=== PATIENT | male | born 2000 | race Caucasian/White ===

== ENCOUNTER 2020-03-24 20:12 | Emergency (ER) | payer OTHER, SELFPAY ==
--- NOTE | ~2020-03-24 | XR_ITS ---
EXAMINATION: XR shoulder RT min 2V DATE: 03/24/2020 21:04 INDICATION: Right shoulder pain. TECHNIQUE: 4 views of right shoulder were obtained. COMPARISON: None. FINDINGS: Bone alignment is normal. No fracture. Joint spaces are well maintained. IMPRESSION: 1. Normal right shoulder. Reviewed, dictated and finalized at location A. IMPRESSION: 1. Normal right shoulder.
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
[2020-03-24 20:17] VITALS: BP 183/87; PULSE 100; RESP 20; TEMP 36.5; O2SAT 100
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
[2020-03-24 21:40] VITALS: BP 147/77; PULSE 60; RESP 20; O2SAT 98
== END 2020-03-24 21:41 | disposition home or self-care (01) ==
PROVIDERS: Emergency Provider Emergency Medicine; PCP Internal Medicine
DX: S20.221A Contusion of right back wall of thorax, initial encounter (principal); V86.55XA Driver of 3- or 4- wheeled all-terrain vehicle (ATV) injured in nontraffic accident, initial encounter
CPT/HCPCS: 71046; 71100; 73030; 99284

== ENCOUNTER 2020-12-31 05:56 | Emergency (ER) | payer OTHER, SELFPAY ==
--- NOTE | ~2020-12-31 | XR_ITS ---
EXAMINATION: XR finger 2nd LT min 2V DATE: 12/31/2020 06:22 INDICATION: Left hand second digit laceration. TECHNIQUE: 4 views of left hand second digit were obtained. COMPARISON: None. FINDINGS: Bone alignment is normal. No fracture. Joint spaces are well maintained. IMPRESSION: 1. No fracture or radiopaque foreign body. Reviewed, dictated and finalized at location A. IONEER TOBACCO
[2020-12-31 06:00] VITALS: BP 129/81; PULSE 109; RESP 12; TEMP 37.2; O2SAT 100
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
[2020-12-31 06:54] VITALS: BP 121/78; PULSE 76; RESP 16; TEMP 36.8; O2SAT 100
== END 2020-12-31 06:55 | disposition home or self-care (01) ==
PROVIDERS: Emergency Provider Emergency Medicine; PCP Internal Medicine
DX: S61.211A Laceration without foreign body of left index finger without damage to nail, initial encounter (principal); F17.220 Nicotine dependence, chewing tobacco, uncomplicated; W26.0XXA Contact with knife, initial encounter
CPT/HCPCS: 29130; 73140; 99283

== ENCOUNTER 2021-07-29 19:15 | Emergency (ER) | payer OTHER, SELFPAY ==
--- NOTE | ~2021-07-29 | XR_ITS ---
XR finger 2nd RT min 2V 07/29/2021 19:39 INDICATION: Right second finger pain after trauma PROCEDURE: 4 views right second finger COMPARISON: No prior studies for comparison. FINDINGS: Fracture, dislocation or subluxation is not identified. The soft tissues appear within norm al limits. No foreign bodies are identified. IMPRESSION: 1: NO ACUTE BONE OR JOINT ABNORMALITY IDENTIFIED. Reviewed, dictated and finalized at location A.
[2021-07-29 19:27] VITALS: BP 139/83; PULSE 73; RESP 16; TEMP 36.9; O2SAT 100
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
== END 2021-07-29 20:38 | disposition home or self-care (01) ==
PROVIDERS: Emergency Provider Nurse Practitioner; PCP Internal Medicine
DX: S60.121A Contusion of right index finger with damage to nail, initial encounter (principal); W22.8XXA Striking against or struck by other objects, initial encounter
CPT/HCPCS: 11740; 73140; 99213; G0463

== ENCOUNTER 2022-08-31 23:26 | Emergency (ER) | payer OTHER, SELFPAY ==
[2022-08-31 23:42] VITALS: BP 150/88; PULSE 88; RESP 16; TEMP 36.6; O2SAT 100
--- NOTE | 2022-09-01 00:22 | ECG_ITS ---
Measurements Intervals [place] Rate: 57 P: 50 [place]: 147 QRS: 72 QRSD: 96 T: 55 QT: 417 QTc: 407 Interpretive Statements SINUS BRADYCARDIA POSSIBLE RIGHT VENTRICULAR CONDUCTION DELAY [RSR (QR) IN V1/V2] NO PREVIOUS ECG AVAILABLE FOR COMPARISON Electronically Signed On 09-01-2022 13:14:46 CDT by Kristi Dior M.D.
--- NOTE | 2022-09-01 00:23 | ED.RECABL ---
HPI - Recheck/Abnormal Lab/Rx General Chief Complaint: Recheck/Abnormal Lab/Rx <Elaina Michele PA-C - Last Filed: 09/01/22 01:52> Stated Complaint: high blood pressure 166/84 <ELIZA Trejo Last Filed: 09/01/22 01:52> Time Seen by Provider: 09/01/22 00:15 <ELIZA Trejo Last Filed: 09/01/22 01:52> History of Present Illness HPI narrative: Patient is a 22-year-old male here for evaluation of feeling weird after he worked out earlier today. Patient states that he has not had much to eat or drink at all today, did drink some preworkout before going to the gym. During his workout, he began to feel dizzy, weak, He left the gym, went home and took his blood pressure and noticed that it was in the 160s systolic. He does not have a personal history of hypertension. No fevers, chills, nausea, vomiting, chest pain, short of breath. <ELIZA Trejo Last Filed: 09/01/22 01:52> Related Data Home Medications: Home Medications Medication Instructions Recorded Confirmed No Home Medications 03/24/20 07/29/21 <ELIZA Trejo Last Filed: 09/01/22 01:52> Allergies/Adverse Reactions: Allergies Allergy/AdvReac Type Severity Reaction Status Date / Time AMOXICILLIN TRIHYDRATE Allergy Mild RASH Uncoded 07/29/21 20:09 <ELIZA Trejo Last Filed: 09/01/22 01:52> Review of Systems Review of Systems: Gen.: Reports dizziness. Denies fevers or chills Eyes: Denies eye pain or visual change ENT: Denies congestion Respiratory: Denies shortness of breath or cough CV: Denies chest pain or palpitations GI: Denies abdominal pain nausea, emesis or diarrhea denies burning, urgency, frequency or hematuria Musculoskeletal: Denies back pain or muscle pain Neuro: Denies numbness, tingling, weakness or focal weakness Skin: Denies rash Except as documented, all other systems reviewed and negative <Elaina Michele PA-C - Last Filed: 09/01/22 01:52> [facility] Past Medical History Medical History: Medical History No significant past medical history <Elaina Michele PA-C - Last Filed: 09/01/22 01:52> Surgical History Surgical History: Surgical History Status post arthroscopic surgery of left knee <Elaina Michele PA-C - Last Filed: 09/01/22 01:52> Social History Social History: Social History Smokeless tobacco user: chewing tobacco Gender identity (if verbalized by the patient): Male <Elaina Michele PA-C - Last Filed: 09/01/22 01:52> Exam Narrative: APPEARANCE: Well appearing, no pain in distress, well-nourished. Head: Normocephalic and atraumatic. EYES: PERRLA/EOMI, conjunctivae clear NOSE: No nasal drainage EARS: External ear normal in appearance THROAT: Oropharynx is clear. Mucous membranes are moist. NECK: Supple. No adenopathy, no masses. RESPIRATORY: Airway patent, respirations nonlabored. Clear to auscultation bilaterally, no rales, rhonchi, wheezing. CARDIOVASCULAR: Regular rate and rhythm without murmurs, rubs, or gallops. ABDOMINAL: Normoactive bowel sounds. Soft, nontender, nondistended. No rebound tenderness or guarding. MUSCULOSKELETAL: Extremities are warm and well-perfused. Moves all extremities well. No edema. NEURO: Normal speech. No focal neurologic deficits. SKIN: Skin is warm and dry. No rashes. PSYCHIATRIC: Normal affect/mood.. <Elaina Michele PA-C - Last Filed: 09/01/22 01:52> Course FACILITY DESIGNER/PA Physician Supervision I discussed this patient with JOHN Michele. I agree with the assessment and plan as documented. <Trenton Bermudez MD - Last Filed: 09/02/22 12:32> Vital Signs Vital signs: Vital Signs Temperature 97.9 F 08/31/22 23:42 Pulse Rate
[2022-09-01 00:49] VITALS: BP 126/75; BP 130/68; PULSE 60; PULSE 72
[2022-09-01 00:50] VITALS: BP 134/81; PULSE 81
[2022-09-01] MEDS: MECLIZINE HCL 25 MG TABLET PO (01:04)
[2022-09-01] MEDS: SODIUM CHLORIDE 0.9% IV 1,000 ML 999 ML IV CONT (01:04)
[2022-09-01 01:19] LABS: Basophils Absolute Auto 0.1 K/mm3 (0.0-0.1); Basophils Percent Auto 0.4 % (0.2-1.2); Eosinophils Absolute Auto 0.1 K/mm3 (0-0.3); Eosinophils Percent Auto 0.8 % (0-4.4); Hematocrit 44.9 % (42.0-52.0); Hemoglobin 15.8 g/dL (14.0-18.0); Immature Granulocyte Absolute 0.05 K/mm3 (0.00-0.031); Immature Granulocyte Percent A 0.4 % (0-0.5); Lymphocytes Absolute Auto 1.89 K/mm3 (0.9-3.2); Mean Corpuscular HGB Conc 35.2 g/dl (32-36); Mean Corpuscular Hemoglobin 30.9 pg (26-34); Mean Corpuscular Volume 87.7 fl (80-100); Mean Platelet Volume 8.5 fl (7.4-10.4); Monocytes Absolute Auto 0.8 K/mm3 (0.1-0.6); Monocytes Percent Auto 6.5 % (2.6-8.5); Neutrophils Percent Auto 75.9 % (45.5-73.1); Platelet Count Result 280 k/mm3 (150-375); Red Blood Count 5.12 M/mm3 (4.6-6.20); Red Cell Distribution Width 12.7 % (11.5-14.5); White Blood Count 11.8 K/mm3 (4.5-10.0)
[2022-09-01 01:29] LABS: Alanine Aminotransferase 125 U/L (6-50); Albumin Level 4.7 g/dL (3.5-5.1); Alkaline Phosphatase 71 U/L (38-126); Anion Gap 13 mmol/L (8-16); Aspartate Amino Transferase 166 U/L (17-59); Bilirubin,Total 0.6 mg/dL (0.2-1.3); Blood Urea Nitrogen 11 mg/dL (9-20); Calcium 9.3 mg/dL (8.4-10.2); Carbon Dioxide 24 mmol/L (22-30); Chloride 104 mmol/L (98-107); Estimated CRCL calculation 137 ml/min; Estimated Glomerular Filt Rate > 60; Glucose 105 mg/dL (65-110); Potassium 3.4 mmol/L (3.4-5.0); Sodium 141 mmol/L (137-145)
[2022-09-01 01:47] LABS: Troponin I < 0.012 ng/mL (0.000-0.034)
[2022-09-01 02:25] VITALS: BP 112/68; PULSE 60; RESP 16; O2SAT 98
== END 2022-09-01 02:58 | disposition home or self-care (01) ==
PROVIDERS: Physician Assistant; Emergency Provider Preventive Medicine Aerospace Medicine; PCP Internal Medicine
DX: E86.0 Dehydration (principal); R00.1 Bradycardia, unspecified
CPT/HCPCS: 36415; 80053; 84484; 85025; 93005; 96360; 99284; A9270; J7030

== ENCOUNTER 2025-02-19 21:42 | Emergency (ER) | payer OTHER, SELFPAY ==
--- NOTE | ~2025-02-19 | XR_ITS ---
CHEST RADIOGRAPH CLINICAL HISTORY: palpitations . COMPARISON: 03/24/2020 TECHNIQUE: Single portable view of the chest. FINDINGS The cardiomediastinal silhouette is unremarkable. A monitor projects over the left mid to upper lung field, obscuring the underlying parenchyma. The remainder of the lungs are clear. IMPRESSION: No focal infiltrate or effusion. Reviewed, dictated and finalized at location A.
--- OUTSIDE RECORDS SUMMARY | 2025-02-19 21:44 | XMS_ITS | Clinical Summary ---
Author Organization [facility] Address [address] [place]: Epic Prelude ADT TAMMIE MCADAMS [id number] Care Team Providers Care Public Relations Supervisor Name Role Phone Unavailable Primary Care Provider Unavailabl e Medications azithromycin (Zithromax Z-Perry) 250 mg tablet TAKE 2 TABLETS (500 MG) BY ORAL ROUTE ONCE DAILY FOR 1 DAY THEN 1 TABLET (250 MG) BY ORAL ROUTE ONCE DAILY FOR 4 DAYS 6 Tablet 12/28/2022 12:56 PM LAND COMMISSIONER 12/28/2022 Active benzonatate (TESSALON) 200 mg capsule Take 1 Capsule (200 mg) by mouth 3 times daily. 21 Capsule 12/02/2023 2:08 PM LAND COMMISSIONER 12/02/2023 Active methylPREDNISol one (MEDROL DOSPACK) 4 mg Tablets, Dose Pack Take as directed on package 21 Tablet 02/29/2024 4:09 PM CDT 02/29/2024 Active azithromycin (Zithromax Z-Perry) 250 mg tablet Take 2 tablets by mouth daily for 1 day, then take 1 tablet by mouth days 2-5 6 Tablet 02/29/2024 4:09 PM CDT 02/29/2024 Active benzonatate (TESSALON) 200 mg capsule Take 1 Capsule (200 mg) by mouth 3 times daily. 21 Capsule 01/23/2025 5:06 PM LAND COMMISSIONER 01/23/2025 Active azithromycin (Zithromax Z-Perry) 250 mg tablet TAKE 2 TABLETS BY MOUTH A SINGLE DOSE ON DAY 1, THEN TAKE 1 TABLET ONCE DAILY ON DAYS 2 THRU 5. 6 Tablet 01/23/2025 5:06 PM LAND COMMISSIONER 01/23/2025 Active Social History Tobacco Use Types Packs/Day Years Used Date Smoking Tobacco: Never Assessed Sex and Gender Information Value Date Recorded Sex Assigned at Not on file Legal Sex Male 3:27 PM CDT Gender Identity Not on file Sexual Orientation Not on file Plan of Treatment Health Maintenance Due Date Last Done Comments HPV VACCINES (1 - Male 3-dos e series) 2014 DTAP/TDAP/TD VACCINES (1 - Tdap) 2018 HEPATITIS B VACCINES (1 of 3 - 19+ 3-dose series) 2018 INFLUENZA VACCINE (#1) 2024 PNEUMOCOCCAL VACCINE 0-49 YEARS Aged Out No longer eligible based on patient's age to complete this topic Insurance [employer]
--- OUTSIDE RECORDS SUMMARY | 2025-02-19 21:44 | XMS_ITS | Clinical Summary ---
Author Organization [facility] Address [address] [place] [address] Care Team Providers Care Art Glass Setter Name Role Phone Nigel Hernandez MD Primary Care Provider [phone] Source Comments [facility],non-owned Affiliates and Associated Physician Practices is amultiple site organization consisting of ambulatory clinics and hospital sitesin [place], [place], [place] and [place]. This disclosure is being madepursuant to the Care Everywhere program and may not contain all information available regarding this patient. Last updated 18.[facility] Allergies Active Allergy Reactions Criticality Noted Date Comments Amoxicillin Rash Low 08/01/2015 Medications Be aware that medications may not be up to date on this document. Always verify current medications with the patient. No known medications Active Problems Problem Noted Date Diagnosed Date Scaphoid fracture of wrist 09/26/2015 Fracture of navicular bone of left wrist 015 Social History Tobacco Use Types Packs/Day Years Used Date Smoking Tobacco: Never Alcohol Use Standard Drinks/Week Comments Not Asked 0 (1 standard drink = 0.6 oz pur e alcohol) Sex and Gender Information Value Date Recorded Sex Assigned at Not on file Gender Identity Not on file Sexual Orientation Not on file Last Filed Vital Signs Vital Sign Reading Time Taken Comments Blood Pressure - - Pulse - - Temperature - - Respiratory Rate - - Oxygen Saturation - - Inhaled Oxygen Concentration - - Weight 94.4 kg (208 lb 0.6 oz) 09/26/2015 8:54 A M FIELD INSPECTOR Height 178.9 cm (5' 10.43 ) 09/26/2015 8:[address] Body Mass Index 29.48 09/26/2015 8:54 AM FIELD INSPECTOR Plan of Treatment Health Maintenance Due Date Last Done Comments HIV SCREENING 2014 HPV VACCINE (1 - Male 3-dose series) 2014 HEPATITIS C SCREENING 08/11/2017 DTAP/TDAP/TD VACCINES (1 - Tdap) 2018 HEPATITIS B VACCINE (1 of 3 - 19+ 3-dose series) 2018 COVID-19 VACCINE (1 - 2023-2 5 season) 2024 INFLUENZA VACCINE (#1) 2024 DEPRESSION SCREENING 11/22/2024 ZOSTER VACCINE (1 of 2) 2049 HIB VACCINE Aged Out No longer eligi ble based on patient's age to complete this topic MENINGOCOCCAL (Group B) VACC INE SHARED DECISION-MAKING Aged Out No longer eligibl e based on patient's age to complete this topic MENINGOCOCCAL GROUPS A/C/Y/W VACCINE Aged Out No longer eligible b ased on patient's age to complete this topic PNEUMOCOCCAL VACCINE Aged Out No long er eligible based on patient's age to complete this topic Care Teams Art Glass Setter Relationship Specialty Start Date End Date Nigel Hernandez MD [address] [place] [id number] PCP - General Internal Medicine 07/31/15
--- OUTSIDE RECORDS SUMMARY | 2025-02-19 21:44 | XMS_ITS | Clinical Summary ---
Author Organization [facility] Address [address] [place] [id number] Care Team Providers Care Artillery Meteorological Man Name Role Phone Unavailable Primary Care Provider Unavailabl e Social History Tobacco Use Types Packs/Day Years Used Date Smoking Tobacco: Never Assessed Sex and Gender Information Value Date Recorded Sex Assigned at Not on file Legal Sex Male 2:14 PM DONOR CENTER TECHNICIAN Gender Identity Not on file Sexual Orientation Not on file Plan of Treatment Health Maintenance Due Date Last Done Comments Hepatitis C Virus (HCV) Screening 1999 TdaP Immunization 1999 Hepatitis B Immunization (2 of 3 - 3-dose series) 1999 1999 Influenza Immunization (#1) 2024 SARS-COV-2 Immunization ( season) 2024 Respiratory Syncytial Virus (RSV) Immunization (Adult) (1 - 1-dose 75+ series) 2074 Human Papillomavirus (HPV) Immunization Completed 06/26/2014, 06/23/2013 Meningococcal Immunization (ACWY) Aged Out No longer eligible b ased on patient's age to complete this topic Pneumococcal Immunization Combined Aged Out No longer eligible b ased on patient's age to complete this topic Rotavirus Immunization Aged Out No lo nger eligible based on patient's age to complete this topic
--- OUTSIDE RECORDS SUMMARY | 2025-02-19 21:44 | XMS_ITS | Clinical Summary ---
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 Phone Nigel Hernandez MD Primary Care Provider Allergies Active Allergy Reactions Criticality Noted Date Comments Amoxicillin Rash Medium 08/01/2015 Penicillins Rash Medium Medications No known medications Active Problems Problem Noted Date Diagnosed Date Current tear of lateral cartilage or meniscus of knee 01/30/2019 Overview (01/30/2019): Added automatically from request for surgery [id number] Knee pain 10/06/2013 Surgical History Surgery Date Site/Laterality Comments MYRINGOTOMY W/ TUBES 1999 - 11/21/2000 Bilateral Medical History Medical History Date Comments Asthma well controlled Cold Z-pack / cough m edicine started 02/01--now resolved Chews tobacco regularly Family History Medical History Relation Name Comments Hypertension Father Arthritis Mother Relation Name Status Comments Father Mother Social History Tobacco Use Types Packs/Day Years Used Date Smoking Tobacco: Never Smokeless Tobacco: Current Chew Alcohol Use Standard Drinks/Week Comments Not Currently 0 (1 standard drink = 0.6 oz pur e alcohol) Sex and Gender Information Value Date Recorded Sex Assigned at Not on file Legal Sex Male 9:43 AM [employer] Gender Identity Not on file Sexual Orientation Not on file Obstetrics History Last Filed Vital Signs Vital Sign Reading Time Taken Comments Blood Pressure 128/77 04/28/2024 6:42 PM CDT Pulse 92 04/28/2024 6:42 PM CDT Temperature 37.4 C (99.3 F) 04/28/2024 6:42 PM CDT Respiratory Rate 16 04/28/2024 6:42 PM CDT Oxygen Saturation 97% 04/28/2024 6:42 PM CDT Inhaled Oxygen Concentration - - Weight 95.6 kg (210 lb 12.8 oz) 04/28/2024 6:42 PM CDT Height 177.8 cm (5' 10 ) 04/28/2024 6:42 PM CDT Body Mass Index 30.25 04/28/2024 6:42 PM CDT Plan of Treatment Health Maintenance Due Date Last Done Comments Depression Screening 1999 Hepatitis C Screening 1999 Varicella Vaccines (2 of 2 - 2-dose childhood series) 2003 08/21/2000 Regular Well Visit/Exam 18-64 2017 Pneumococcal vaccine <65 (1 of 2 - PCV) 2018 DTaP/Tdap/Td Vaccine (7 - Td or Tdap) 05/27/2021 05/27/2011, 05/21/2005, 01/29/2001, Additional history exists Influenza Vaccine (#1) 2024 Hepatitis B Screening Completed 03/23/2000 , 01/13/2000, 01/13/2000, Additional history exists HPV Vaccines Completed 06/26/2014, 12/2012, 05/30/2012, Additional history exists Insurance [facility] CHO[facility] PLUS [facility] PL[facility] PLUS Care Teams [employer] Delivery [employer] Relationship Specialty Start Date End Date Nigel Hernandez MD PCP - General Internal Medicine 01/27/19
--- OUTSIDE RECORDS SUMMARY | 2025-02-19 21:44 | XMS_ITS | Data Portability ---
Author Organization [place] - [place] [employer], Main Office Address [address] [place] [address] Care Team Providers Care Cisco Administrator Name Role Phone LIZ NANCIE Primary Care Provider [phone] NANCIE HERNANDEZ Referring Provider Assessment No assessment recorded. Plan of Treatment Reminders Order Date Submit Date Provider Last Modified By Organization Details Last Modified Time Details Appointments None recorded. Lab lipid panel, serum 2023 024 [email or web address] [facility], [address] [place], [address], 4 17:03:03 CRP, high sensitivity , serum or plasma 2023 024 [email or web address] [facility], [address] [place], [address], 4 09:58:11 Referral None recorded. Procedures None recorded. Surgeries None recorded. Imaging None recorded. Medication Orders Zithromax Z-Perry 250 mg tablet 2024 025 [facility] [address], [place], [place], [id number], 5 17:25:20 benzonatate 200 mg capsule 2024 025 [facility], [address], [place], [place], [id number], 5 17:25:20 Bactrim DS 800 mg-160 mg tablet 2023 024 [email or web address] [facility] [address], [address] , [place], [place], [id number], 17:09:11 Patient TargetsNo targets recorded. Patient Instructions Encounter Date Encounter Id Patient Instructions Last Modified By Organization Details Last Modified Time 02/25/2024 [id number] risk assessment* [email or web address] Not availabl e 02/25/2024 17:01:47 INFLUENZA VACCIN E TD/TDAP Recommended today, patient declined Ordered P atient will get at local pharmacy/health department COLORECTAL SCREENING Recommended today, but patient declined Ordered C olonoscopy declined. Cologuard ordered No screening necessary until age 45 DEPRESSION SCREENING Negative BMI Overweight continue your current weight loss efforts try to lose 5% of your body weight try to lose 10% of your body weight NUTRITION Continue healthy eating & exercise PHYSICAL ACTIVITY Need more activity VISION ALCOHOL USE No alcohol use Occasional/Soc ial Use TOBACCO USE non smoker SEXUALLY ACTIVE GLUCOSE SCREENING Not needed LIPID SCREENING Not needed [email or web address] Not available 02/25/2024 16:33:44 Wellness evaluation risk assessment stable. No interval complaints of any major medical problems or symptoms. Instructed patient try some Zyrtec or Kristine along with possibly some Flonase and saline rinses of the nose. If no improvement will need can further evaluation. Will check a lipid panel because of family history grandfather has had cardiac disease. Other than that the patient is doing well. Follow-up in one year Next Appt: 1 Year Approximate Date: 02/24/2025 Portions of the record may have been created with voice recognition software. Occasional wrong-word or seotk-c-kaqx substitutions may have occurred due to the inherent limitations of voice recognition software. Read the chart carefully and recognize, using context, where substitutions have occurred. [email or web address] Not available 02/25/2024 17:01:05 04/20/2024 [id number] Epidermoid cyst of the neck will give a trial of some antibiotics in the form of Bactrim ds one b.i.d. For seven days. Instructed let us know if there is no improvement may need to consider further evaluation. Keep Appointment: [facility] 03 01 2025 04:00 PM Olimpia Portions of the record may have been created with voice recognition software. Occasional wrong-word or qnxdh-i-mucy substitutions may have occurred due to the inherent limitations of voice recognition software. Read the chart carefully and recognize, using context, where substitutions have occurred. [email or web address] Not available 04/20/2024 16:50:12 01/23/2025 [id number] Senna bronchitis will give a trial of Z-Perry some benzoate. If no improvement will need to consider further diagnostic evaluation. Keep Appointment: [facility] 03 01 2025 04:00 PM [place] Portions of record are template driven. When necessary additional context will be provided. Additionally some portions have been created with voice recognition software. Occasional wrong-word or mmpjf-v-nfkc substitutions may have occurred due to the inherent limitations of voice recognition software. Read the chart carefully and recognize, using context, where substitutions may have occurred. Created: Nancie Hernandez M.D. 01.23.2025 04:26 PM [email or web address] Not available 01/23/2025 17:26:14 Reason for Referral None Reported. Results Created Date Observation Date Name Description Value Unit Range Abnormal Flag Note LastModifiedBy Organization Detail LastModifiedTime 10/26/20 22 10/26/2022 COVID /FLU/ RSV PCR PANEL sars-cov-2 RNA(covid19) ,RT-PCR negati ve Not Available [facility] (Lab) [address] [place], [address], 10/26/2022 16:00:38 10/26/20 22 10/26/2022 COVID /FLU/ RSV PCR PANEL influenza A RNA, RT-PCR negati ve Not Available [facility] (Lab) [address] [place], [address], 10/26/2022 16:00:38 10/26/20 22 10/26/2022 COVID /FLU/ RSV PCR PANEL influenza B RNA, RT-PCR negati ve Not Available [facility] (Lab) [address] [place], [address], 10/26/2022 16:00:38 10/26/20 22 10/26/2022 COVID /FLU/ RSV PCR PANEL RSV/resp.syn ctial virus,RT-PCR negati ve Not Available [facility] ([facility]) [address], [place], [address], 10/26/2022 16:00:38 Result Notes None recorded. Problems Name Problem SNOMED Code Status Onset Date Resolution Date Notes Provider Name and Address Organization Details Recorded Time Constipation 21475265 Active 2021 Not Available [facility] 3 17:00:29 Acute sinusitis 18551945 Active 2021 Not Available [facility] 3 17:00:29 Asthma 359592414 Active Not Available [facility] 3 17:00:29 Current tear of medial cartilage AND/OR meniscus of knee Active Not Available [facility] 3 17:00:29 Current tear of lateral cartilage AND/OR meniscus of knee Active Not Available [facility] 3 17:00:29 Knee pain Active Not Available [facility] 3 17:00:29 Patellar tendonitis 17843755 Active Not Available [facility] 3 17:00:29 Hematoma 055125767 Active 2016 Not Available [facility] 3 17:00:29 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 Not Available [facility] 3 17:00:29 Acute bronchitis 65227040 Active 2023 Nancie Hernandez MD [address], [address], [place], [address] , [employer] 4 13:52:14 Allergic rhinitis 04294923 Active 2023 Nancie Hernandez MD [address], [address], [place], [address] , [facility] [employer] 4 16:56:22 Epidermoid cyst of skin of neck 745132303 Active 2023 Nancie Hernandez MD [address], [address], [place], [address] , [facility] [employer] 4 16:49:34 Tachycardia 0289813 Active 2024 Natalia Mcdowell CMA null, [place] [facility] 5 11:16:12 Problem Notes None recorded. Medical Equipment None Reported. Allergies Allergen ID Allergen Name Allergen Category Reaction Reaction Severity Criticality Documentation Date Start Date Code Code System Note Provider Name and Address Organization Details Recorded Time 76991 amoxicill in medicatio n rash Not available Not available 01/20/2023 723 RxNorm Not Available [facility] 3 17:01:53 Medications Name Sig Start Date Stop Date Status Note LastModified by Organization Details LastModified Time Singulair 10 mg tablet Take 1 tablet every day by oral route. 04/08 completed Not Available Not Available Not Available doxycycline hyclate 100 mg capsule 01/23 completed Not Available Not Available Not Available benzonatate 200 mg capsule Take 1 capsule 3 times a day by oral route. 2024 active Not Available Not Available Not Avai lable Zithromax Z-Perry 250 mg tablet Take 2 TABLET EVERY DAY by oral route for 1 day then one daily 2024 active Not Available Not Available Not Avai lable clindamycin HCl 150 mg capsule Take 1 capsule every 6 hours by oral route. 12/22 completed Not Available Not Available Not Available acetaminoph en 300 mg-codeine 30 mg tablet 10/17 completed Not Available Not Available Not Available Naprosyn 375 mg tablet Take 1 tablet twice a day by oral route. active Not Available Not Available No t Available tramadol 50 mg tablet 10/17 completed Not Available Not Available Not Available ondansetron 8 mg disintegrat ing tablet 10/17 completed Not Available Not Available Not Available neomycin-po lymyxin-dex ameth 3.5 mg/mL-10,00 0 unit/mL-0.1 % eye drops 08/04 completed Not Available Not Available Not Available Levaquin 500 mg tablet Take 1 tablet every 24 hours by oral route. 04/08 completed Not Available Not Available Not Available methylpredn isolone 4 mg tablets in a dose pack As Directed 04/20 completed Not Available Not Available Not Available Bactrim DS 800 mg-160 mg tablet Take 1 tablet every 12 hours by oral route. 01/23 completed Not Available Not Available Not Available Flonase Allergy Relief 50 mcg/actuati on nasal spray,suspe nsion 2 sprays each nostril daily 04/08 completed Not Available Not Available Not Available Vitals Date Recorded Body mass index (BMI) Body height Heart rate Respiratory rate Body temperature Body weight Systolic blood pressure Diastolic blood pressure Provider Name and Address Organization Details Last Updated DateTime 1 33.9 kg/m2 179.07 cm 76 /min 12 /min 97.5 [degF] 132722. 17 g 126 mm[Hg] 62 mm[Hg] Not Available [facility] 3 16:59:58 Date Recorded Oxygen saturation Oxygen saturation in Arterial blood by Pulse oximetry Heart rate Body temperature Body weight Systolic blood pressure Diastolic blood pressure Provider Name and Address Organization Details Last Updated DateTime 2 98 % 98 % 76 /min 97.6 [degF] 59416.7 3 g 134 mm[Hg] 80 mm[Hg] Not Available [facility] 3 16:59:58 Date Recorded Body height Body mass index (BMI) Body weight Heart rate Body temperature Oxygen saturation Oxygen saturation in Arterial blood by Pulse oximetry Systolic blood pressure Diastolic blood pressure Provider Name and Address Organization Details Last Updated DateTime 4 179.07 cm 31.5 kg/m2 206646. 1 g 73 /min 97 [degF] 97 % 97 % 120 mm[Hg] 68 mm[Hg] Keke Santiago [employer] 4 16:28:29 Date Recorded Body height Body mass index (BMI) Body weight Heart rate Body temperature Oxygen saturation Oxygen saturation in Arterial blood by Pulse oximetry Systolic blood pressure Diastolic blood pressure Provider Name and Address Organization Details Last Updated DateTime 4 179.07 cm 30.3 kg/m2 23654.7 7 g 80 /min 97.6 [degF] 98 % 98 % 118 mm[Hg] 72 mm[Hg] SEAN Rolle [employer] 4 16:40:23 Date Recorded Body height Body mass index (BMI) Body weight Heart rate Body temperature Oxygen saturation Oxygen saturation in Arterial blood by Pulse oximetry Systolic blood pressure Diastolic blood pressure Provider Name and Address Organization Details Last Updated DateTime 5 179.07 cm 31.7 kg/m2 875911. 69 g 79 /min 97 [degF] 97 % 97 % 120 mm[Hg] 78 mm[Hg] Keke Santiago [place] [facility] 17:09:01 Social History None recorded. Functional Status None recorded. Mental Status None recorded. Family History Nothing Reported Notes:Mother living 51 in go od health hip surgery Father living 51 in good health One sister living and in good health. Medical History Condition Response NERVE DISEASE N BLINDNESS N RHEUMATIC FEVER N KIDNEY STONES N BLADDER PROBLEMS N MRSA N OTHER # 1 N POLIO N LUNG DISEASE/DISORDER N RADIATION / CHEMOTHERAPY N COPD N Other # 2 N BLOOD DISEASES N SURGERY N EAR OR HEARING PROBLEMS N MUMPS N DEPRESSION (INCLUDING POST ) N BOWEL PROBLEMS N STROKE/TIA N ULCERS N BENIGN PROSTATIC HYPERPLASIA N MEASLES N MYOCARDIAL INFARCTION N OBESITY N GERD/NAUSEA N ANEURYSM N URINARY/BLADDER/KIDNEY PROBLEMS N CORONARY ARTERY DISEASE (CAD) N ADDICTION CONCERNS N Impotence N ENDOMETRIOSIS N USE OF BLOOD THINNERS N SKIN PROBLEMS N GASTROINTESTINAL DISORDER N PERIPHERAL VASCULAR DISEASE N MUSCLE,JOINT OR BONE PROBLEMS Y GASTROINTESTINAL BLEEDING N BLOOD CLOTS N ASTHMA Y CATARACTS N ERECTILE DYSFUNCTION N VARICOSITIES N GI PROBLEMS N Low Testosterone N INFERTILITY N AIDS/HIV N CHEMOTHERAPY / RADIATION N LIVER DISEASE N MALE HYPOGONADISM N HYPERTENSION N Deficiency N ANXIETY DISORDER N BLOOD TRANSFUSION N ANEMIA/BLOOD DISORDER N CHRONIC EAR INFECTIONS N BRONCHITIS N TUBERCULOSIS N GLAUCOMA N FOOT PROBLEM N DIVERTICULITIS N SLEEP APNEA N CHICKENPOX N INFECTIOUS DISEASE N PROSTATE N HEART ARRHYTHMIA N INSOMNIA N HIGH CHOLESTEROL / HYPERLIPIDEMIA N EYE PROBLEMS N HYPERTHYROIDISM N NEUROLOGICAL PROBLEMS N EDEMA N CHRONIC PAIN SYNDROME N HYPOTHYROIDISM N CAROTID BLOCKAGE N CONSTIPATION N BACK / NECK PROBLEMS N HAVE YOU BEEN HOSPITALIZED OR SEEN IN [facility] IN THE PAST YEAR ? N ATHEROSCLEROSIS N BREAST PROBLEMS N DIALYSIS N ECZEMA N OSTEOPOROSIS N ARTHRITIS N NO SIGNIFICANT PAST MEDICAL HISTORY N APPENDICITIS N DIABETES, TYPE N BAD TEETH N ENT N HEARTBURN / REFLUX N AUTISM SPECTRUM DISORDER (ASD) N HEPATITIS / LIVER DISEASE N GOUT N SLEEP DISORDER N ALZHEIMER'S DISEASE N Brain Problems N DEMENTIA N HERPES N SEIZURES/EPILEPSY N HEADACHES/MIGRAINES N VASCULAR DISEASE N PACEMAKER N Blood Disorder N DIZZINESS N HEART DISEASE/HEART PROBLEMS N KIDNEY DISEASE N MULTIPLE SCLEROSIS N CANCER: SPECIFY N CARDIAC ARRHYTHMIA N ATRIAL FIBRILLATION N Gall Stones N PULMONARY EMBOLISM N AUTOIMMUNE DISEASE N Immunizations Vaccine Type Date Status Note Provider [facility] e and Address Organization Details Recorded Time meningococcal MCV4P 7 completed Not Available [facility] 01/20/2023 17:01:47 Hib (HbOC) 0 completed Not Available [facility] 01/20/2023 17:01:47 OPV 9 completed Not Available [facility] 01/20/2023 17:01:47 DTaP 9 completed Not Available [facility] 01/20/2023 17:01:47 HPV, quadrivalent 3 completed Not Available [facility] 01/20/2023 17:01:47 meningococcal B, unspecified 1 completed Not Available [facility] 01/20/2023 17:01:48 DTaP 5 completed Not Available [facility] 01/20/2023 17:01:48 MMR 4 completed [facility] Available [facility] 01/20/2023 17:01:48 Hep A, ped/adol, 2 dose 2 completed [facility] Available [facility] 01/20/2023 17:01:48 IPV 1 completed Not Available [facility] 01/20/2023 17:01:48 Hep A, ped/adol, 2 dose 1 completed Not Available [facility] 01/20/2023 17:01:48 IPV 1 completed Not Available [facility] 01/20/2023 17:01:49 MMR 1 completed [facility] Available [facility] 01/20/2023 17:01:49 DTaP 0 completed Not Available [facility] 01/20/2023 17:01:49 IPV 0 completed Not Available [facility] 01/20/2023 17:01:49 Hep B, adolescent or pediatric 0 completed Not Available [facility] 01/20/2023 17:01:49 HPV, quadrivalent 2 completed Not Available [facility] 01/20/2023 17:01:49 HPV, quadrivalent 1 completed Not Available [facility] 01/20/2023 17:01:49 Tdap 1 completed Not Available [facility] 01/20/2023 17:01:49 DTaP 1 completed Not Available [facility] 01/20/2023 17:01:49 Hib, unspecified formulation 1 completed Not Available [facility] 01/20/2023 17:01:50 varicella 0 completed Not Available [facility] 01/20/2023 17:01:50 DTaP 0 completed Not Available [facility] 01/20/2023 17:01:50 Hep B, adolescent or pediatric 0 completed Not Available [facility] 01/20/2023 17:01:50 Hib, unspecified formulation 0 completed Not Available [facility] 01/20/2023 17:01:50 Hib-Hep B 0 completed Not Available [facility] 01/20/2023 17:01:50 Past Encounters Encounter ID Performer Location Encounter Start Date Encounter Closed Date Diagnosis/Indication Diagnosis SNOMED-CT Code Diagnosis ICD10 Code Diagnosis Note [id number] [facility] Internal Med [place] [facility] [address] [place] [address] 02/28/2021 00:00:00 02/28/2021 16:46:[id number] [facility] Internal Med [place] [facility] [place] [address] 08/04/2022 00:00:00 08/04/2022 11:25:30 [id number] [facility] Internal Med [place] [address] [place] [address] [address] 02/25/2024 16:22:06 02/25/2024 17:05:48 Adult health examination 651152282 Z00.00 Depression screening 171 361498 Z13.31 Allergic rhinitis 693842 04 J30.9 Screening for cardiovascular system disease 814594850 Z13.6 [id number] [address] Hernandez MD [facility] Internal Med [place] [address] [place] [address] y , [place] [address] 04/20/2024 16:32:43 04/20/2024 16:52:15 Epidermoid cyst of skin of neck 396522904 L72.0 [id number] Nancie Hernandez MD [facility] [address] [facility], [facility] [place] [address] 01/23/2025 16:55:48 01/23/2025 17:27:37 Acute bronchitis 76964815 J20.9 J20.0 J20.1 J20.2 J20.3 J20.4 J20.5 J20.6 J20.7 J20.8 Health Concerns Section Related Observation LastModified by Organization Detai ls LastModified Time None Recorded Concern Status LastModified by Organization Details LastModified Time None Recorded Advance Directives Directive None Recorded Payers Encounter Date Sequence Insurance Name Policy Number Policy Muniz Covered Member ID Muniz Member ID Guarantor Name 02/25/2024 1 [employer] PLUS [id number] [employer] [id number] [employer] 04/20/2024 1 [employer] PLUS [id number] [employer] [id number] [employer] 01/23/2025 1 [employer] [id number] [employer] [id number] [employer] Notes Date Note Type Note Provider Name and Address Organization Details Recorded Time 02/25/2024 text/html Patient Name: Rose Marie Weeks Of Service: Wednesday ( 02.25.2024 ): 2000 Age: 23 There has been approximately a 4 lb weight gain since 08/04/2022. This represents approximately a 1.8% change in weight. Weight change attributable to lifestyle changes. Vital Signs:Blood Pressure: Sitting Rt. Arm 120/68Pulse: Sitting 73 /min and RegularRespiratory Rate: 12Height 70.5 in or 1.8 mWeight 223 lb or 101.2 kgBMI 31.5 Chief Complaint: Addressed in HPI Problems or conditions discussed in the HPI were the only ones reviewed during the encounter.Only social and family history addressed in the HPI were reviewed during this encounter. Attendant(s): NoneConstitutional and Systemic Symptoms:none Medication Reconciliation: from medication list. History of Present Illness In for a well patient check up. Last well patient evaluation was approximately one year. No interval complaints of any new major medical problems. No hx of any chest pain, shortness of breath, nausea, vomiting, diarrhea or constitutional symptoms.PSA NAColonoscopy or Cologuard: not dueImmunizations Up To Date or refuses to takeNo Significant Change In Family HxFall Risk normalDepression Score: 0Hearing normalVisual normalReviewed Smoking and Drug HistoryReviewed Immunization HistoryInstructed on importance of weight on diabetes, heart and other diseases aggravated by obesity.Instructed on importance of weight on diabetes, heart and other diseases aggravated by obesity. #1. Complaining of seasonal allergic type symptomatology manifested predominantly by nasal congestion rhinorrhea as well as itching of the nasal cavity. No associated purulent drainage. No associated fever, chills or other systemic or constitutional symptoms: Social HistoryDoes not smokeDoes not drinkNo illegal drug usageNot currently sexually active Family HistoryMother living 51 in good health hip surgeryFather living 51 in good healthOne sister living and in good health. Nancie Hernandez MD [address] [place] [address], [place] [address], [place], [address], [facility] Walk-in 02/25/2024 17:01:50 04/20/2024 text/html Patient Name: Rose Marie Weeks Of Service: March ( 04.20.2024 ): 2000 Age: 23 There has been approximately a 9 lb weight loss since 02/25/2024. This represents approximately a 4.0% change in weight. Weight change attributable to lifestyle changes. Vital Signs:Blood Pressure: Sitting Rt. Arm 118/72Pulse: Sitting 80 /min and RegularRespiratory Rate: 12Height 70.5 in or 1.8 mWeight 214 lb or 97.1 kgBMI 30.3 Chief Complaint: Lesion right posterior cervical area Problems or conditions discussed in the HPI were the only ones reviewed during the encounter.Only social and family history addressed in the HPI were reviewed during this encounter. Attendant(s): NoneConstitutional and Systemic Symptoms:none Medication Reconciliation: from medication list. History of Present Illness #1. Three four day history of a slight discomfort in the right posterior cervical chain of the neck. On examination there is a proximally a 2 cm diameter subcutaneous lesion which appears feels cystic. No drainage is noted. Does not appear to be an overt O sebaceous cyst although could represent some variation of epidermal cyst. Slightly tender. No associated fever chills or other associated systemic symptomatology. No other accompanying lymphadenopathy.: Nancie Hernandez MD [address], [place], [address], [facility] [employer] 04/20/2024 16:51:17 01/23/2025 text/html Patient Name: Rose Marie Weeks Of Service: Wednesday ( 01.23.2025 ): 2000 Age: 24 There has been approximately a 10 lb weight gain since 04/20/2024. This represents approximately a 4.7% change in weight. Weight change attributable to lifestyle changes. Vital Signs:Blood Pressure: Sitting Rt. Arm 120/78Pulse: Sitting 79 /min and RegularRespiratory Rate: 16Height 70.5 in or 1.8 mWeight 224 lb or 101.6 kgBMI 31.7Temperature: 97 F or 36.1 CPulse Oximetry: 97 % at rest on no oxygen Chief Complaint: Addressed in HPI Problems or conditions discussed in the HPI were the only ones reviewed during the encounter.Only social and family history addressed in the HPI were reviewed during this encounter. Attendant(s): NoneConstitutional and Systemic Symptoms:none Medication Reconciliation: from medication list. History of Present Illness #1. Sinus congestion, cough and minimal amount of wheezing. Some burning in the chest but no actual chest pain. No shortness a breath, wheezing or any other constitutional cardiovascular symptoms. Denies any fever or chills. Is coughing up some purulent sputum.: Social HistoryDoes not smokeDoes not drinkNo illegal drug usageNot currently sexually active Family HistoryMother living 51 in good health hip surgeryFather living 51 in good healthOne sister living and in good health. Nancie Hernandez MD [address], [place], [address], [facility] [employer] 01/23/2025 17:26:24
--- OUTSIDE RECORDS SUMMARY | 2025-02-19 21:44 | XMS_ITS | CONTINUITY OF CARE DOCUMENT ---
Author Name musa bhupendracynthia Address Unknown Organization [facility] Address [address] [place] [address] [address] [place] [address] Phone [phone] Care Team Providers Care Capture Manager Name Role Phone En MENA, Anibal Unavailable LIZ MENA, NANCIE Unavailable NANCIE HILL MD Unavailable PROBLEMS Condition Status Date Provider Notes Cardiology examination active Kanu Ahmedzai Palpitations active Kanu Ahmedzai Chest discomfort active Kanu Ahmedzai ENCOUNTERS Date Type Provider Location Encounter Diag nosis - In-person encounter Office Visit Anibal Gatica MD [place] [facility] Cardiology examinationPalpitationsChest discomfort VITAL SIGNS Date Observation Value Provider Body Mass Index (Ratio) 31.05 kg/m2 Barrington Gatica MD pulse rate 57 /min Vale sanderson oxygen saturation, oximetry 95 % Vale Burleson blood pressure, diastolic 73 mm[Hg] Ti cody Burleson blood pressure, systolic 124 mm[Hg] Jesus Burleson height E&M 72 [in_i] Vale sanderson blood pressure, cuff size regular Ti cody Burleson weight E&M 229 [lb_av] Vale sanderson ALLERGIES Allergy Name Onset Date Reaction Criticality Status AMOXICILLIN High Criticality active PENICILLIN High Criticality active INSURANCE PROVIDERS Payer name Policy type / Coverage type Ilya red libertarian ID EDITH Commercial insurance company [id number] [facility] [id number] Other [id number] ADVANCE DIRECTIVES Name Date DISCUSSED - NO DECISION MADE TREATMENT PLAN Date Name Performer Cardiology: O rders: M onitor - Telemetry (Mobile Cardiac) (CPT-41105) C omplete Echo (96196) Anibal Gatica MD Date Name TSH, free T4, total T3 Microalb/Creatinine Urine, Random Ca+PTH Intact CBC (INCLUDES DIFF/P LT) LIPID PANEL COMPREHENSIVE METABO LIC PANEL, W/EGFR Complete Echo Monitor - Telemetry (Mobile Cardiac) HISTORY OF PROCEDURES Procedure Date Procedure Name Provider Procedure Notes S tatus EKG Anibal Gatica MD completed
--- OUTSIDE RECORDS SUMMARY | 2025-02-19 21:44 | XMS_ITS | Referral Summary ---
Author Organization [facility] Address [address] [place] [address] Care Team Providers Care Aircraft Engine Assembler Name Role Phone Nigel Hernandez MD Primary Care Provider Allergies Active Allergy Reactions Criticality Noted Date Comments Amoxicillin Rash Medium 08/01/2015 Penicillins Rash Medium Medications No known medications Active Problems Problem Noted Date Diagnosed Date Current tear of lateral cartilage or meniscus of knee 01/30/2019 Overview (01/30/2019): Added automatically from request for surgery [id number] Knee pain 10/06/2013 Social History Tobacco Use Types Packs/Day Years Used Date Smoking Tobacco: Never Smokeless Tobacco: Current Chew Alcohol Use Standard Drinks/Week Comments Not Currently 0 (1 standard drink = 0.6 oz pur e alcohol) Sex and Gender Information Value Date Recorded Sex Assigned at Not on file Legal Sex Male 9:43 AM STAFF NURSE ICU RESOURCE TEAM Gender Identity Not on file Sexual Orientation [...] 04/28/2024 6:42 PM CDT Plan of Treatment Not on file Insurance [facility] CHOICE PLUS [facility] CHOICE PLUS [facility] CHOICE PLUS Care Teams Aircraft Engine Assembler Relationship Specialty Start Date End Date Nigel Hernandez MD PCP - General Internal Medicine 01/27/19
--- NOTE | 2025-02-19 21:49 | ECG_ITS ---
Test Date: 2025-02-19 22:13:49 Measurements Intervals [place] Rate: 92 P: 69 TX: 159 QRS: 68 QRSD: 98 T: 62 QT: 369 QTc: 458 Interpretive Statements SINUS RHYTHM BASELINE ARTIFACT- I, II, III, AVR, AVL, V1, V5-V6 NORMAL ECG No previous ECG available for comparison Electronically Signed On 02-20-2025 06:13:47 CDT by Josiah Virk D.O.
[2025-02-19 21:52] VITALS: BP 158/84; PULSE 82; RESP 18; TEMP 36.7; O2SAT 100
[2025-02-19 21:57] VITALS: PULSE 88
[2025-02-19 22:01] VITALS: BP 154/82; PULSE 98; RESP 20; O2SAT 100
[2025-02-19 22:02] VITALS: O2SAT 100
[2025-02-19 22:19] LABS: Basophils Absolute Auto 0.1 K/mm3 (0.0-0.1); Basophils Percent Auto 0.5 % (0.2-1.2); Eosinophils Absolute Auto 0.2 K/mm3 (0-0.3); Eosinophils Percent Auto 2.2 % (0-4.4); Hematocrit 46.8 % (42.0-52.0); Hemoglobin 16.6 g/dL (14.0-18.0); Immature Granulocyte Absolute 0.04 K/mm3 (0.00-0.031); Immature Granulocyte Percent A 0.4 % (0-0.5); Lymphocytes Absolute Auto 3.53 K/mm3 (0.9-3.2); Lymphocytes Percent Auto 38.1 % (18.3-44.2); Mean Corpuscular HGB Conc 35.5 g/dl (32-36); Mean Corpuscular Hemoglobin 30.7 pg (26-34); Mean Corpuscular Volume 86.7 fl (80-100); Mean Platelet Volume 9.1 fl (7.4-10.4); Monocytes Absolute Auto 0.5 K/mm3 (0.1-0.6); Monocytes Percent Auto 5.4 % (2.6-8.5); Neutrophils Percent Auto 53.4 % (45.5-73.1); Platelet Count Result 230 k/mm3 (150-375); Red Cell Distribution Width 12.7 % (11.5-14.5); White Blood Count 9.3 K/mm3 (4.5-10.0)
--- NOTE | 2025-02-19 22:22 | ED_ITS ---
HPI - Arrhythmia/Palpitations General Chief Complaint: Arrhythmia/Palpitations Stated Complaint: jittery Time Seen by Provider: 02/19/25 22:03 History of Present Illness HPI narrative: 24-year-old male with no significant pertinent past medical history presenting to the emergency department with complaints of feeling jittery and feeling palpitations. He is currently wearing a Holter monitor and follows up with Dr. Gatica from Cardiology. He has a cardiology appointment tomorrow morning. Denies any chest pain or chest pressure. No nausea, vomiting, vision changes, abdominal pain, back pain. No leg swelling or calf cramping. He was otherwise in his normal state of health. He states he was feeling anxious and did not want wait for his appointment tomorrow. He does endorse smoking nicotine both through cigarettes and with cartridge devices. Denies any substance use otherwise. Endorses significant amounts of caffeine with 1-2 cups of coffee in the morning and sodas throughout the day. No history of thyroid issues. He was otherwise in his normal state of health with no recent hospital visits or illnesses. Related Data Home Medications ?Medication ?Instructions ?Recorded ?Confirmed ?Last Taken ?Type No Home Medications 03/24/20 07/29/21 Unknown History Allergies Allergy/AdvReac Type Severity Reaction Status Date / Time Penicillins Allergy Unknown Unknown Verified 02/19/25 21:59 AMOXICILLIN TRIHYDRATE Allergy Mild RASH Uncoded 02/19/25 21:59 Review of Systems 2 Review of Systems: As reviewed above in HPI [facility] Past Medical History Medical History No significant past medical history Surgical History Surgical History Status post arthroscopic surgery of left knee Social History Social History Smokeless tobacco user: chewing tobacco Gender identity (if verbalized by the patient): Male Exam 2 Narrative: GENERAL: Anxious but not any acute distress HEAD: [Normocephalic, atraumatic.] EYES: [PERRLA and EOMI.] ENT: Nares clear, no rhinorrhea or epistaxis. Mucous membranes moist. NECK: Supple. CHEST: [Clear to auscultation. No respiratory distress.] HEART: [Regular rate and rhythm]. No murmur heard. [Normal peripheral pulses.] ABDOMEN: [Soft, nondistended], [nontender], [No rigidity or guarding] EXTREMITIES: Normal range of motion. [No edema.] SKIN: Warm, dry, no rash. NEURO: [No focal deficits]. Alert and oriented [x3.] PSYCH: Anxious mood and affect Course Vital Signs Vital signs: Vital Signs Temperature 36.7 C 02/19/25 21:52 Pulse Rate 82 02/19/25 21:52 Respiratory Rate 18 02/19/25 21:52 Blood Pressure 158/84 H 02/19/25 21:52 Pulse Oximetry 100 02/19/25 21:52 Oxygen Delivery Room Air 02/19/25 21:52 Temperature 36.7 C 02/19/25 21:52 Pulse Rate 63 02/19/25 23:41 Respiratory Rate 22 H 02/19/25 23:41 Blood Pressure 104/82 02/19/25 23:41 Pulse Oximetry 97 02/19/25 23:41 Oxygen Delivery Room Air 02/19/25 22:02 MDM - Arrhythmia/Palpitations MDM Narrative Medical decision making narrative: 24-year-old otherwise healthy male presenting to the emergency department for evaluation of palpitations and feeling jittery. He does smoke significant amounts of nicotine as well as ingest caffeine with multiple cups of coffee and sodas throughout the day. No history of thyroid issues, no history of cardiac issues. No history of irregular heartbeat. He is currently wearing a Holter monitor. Follows up with Dr. Gatica and has an appointment with him tomorrow morning. He is not any acute distress, has normal pulse, no hypoxia, no fever. Blood pressure on the high side but not he has a history of hypertension on previous visits here. Regular rate and rhythm a pulse. Basic laboratory studies were assessed, EKG obtained. Thyroid studies ordered. Low suspicion for cardiac disease and likely secondary to anxiety, possible hyperthyroidism, caffeine or nicotine use. He was given fluid bolus. Workup shows no leukocytosis or anemia. Normal platelet count. Electrolytes within normal limits. Creatinine normal. Normal glucose. TSH elevated at 7.38 but normal T3 and T4. Likely subclinical hypothyroidism. Will defer to his primary care provider for starting medications if needed. Drug screen is negative. EKG shows sinus rhythm, no signs of ectopy or dysrhythmia. Patient is safe for discharge at this time. Medical Records Attestation: I reviewed the patient's medical records. Lab Data Attestation: I reviewed the patient's lab results. 02/19/25 22:11 02/19/25 22:11 Labs: Lab Results 02/19/25 02/19/25 Range/Units 22:11 22:11 WBC 9.3 (4.5-10.0) K/mm3 RBC 5.40 (4.6-6.20) M/mm3 Hgb 16.6 (14.0-18.0) g/dL Hct 46.8 (42.0-52.0) % MCV 86.7 (80-100) fl MCH 30.7 (26-34) pg MCHC 35.5 (32-36) g/dl RDW 12.7 (11.5-14.5) % Plt Count 230 (150-375) k/mm3 MPV 9.1 (7.4-10.4) fl Immature Gran % (Auto) 0.4 (0-0.5) % Neut % (Auto) 53.4 (45.5-73.1) % Lymph % (Auto) 38.1 (18.3-44.2) % Leake % (Auto) 5.4 (2.6-8.5) % Eos % (Auto) 2.2 (0-4.4) % Baso % (Auto) 0.5 (0.2-1.2) % Lymph # (Auto) 3.53 H (0.9-3.2) K/mm3 Leake # (Auto) 0.5 (0.1-0.6) K/mm3 Eos # (Auto) 0.2 (0-0.3) K/mm3 Baso # (Auto) 0.1 (0.0-0.1) K/mm3 Abs Immat Gran (auto) 0.04 H (0.00-0.031) K/mm3 Absolute Neuts (auto) 5.0 (1.3-6.7) K/mm3 Absolute Nucleated RBC 0.000 (0.0-0.012) K/mm3 Nucleated RBC % 0.0 (0.0-0.2) % Sodium 141 (137-145) mmol/L Potassium 3.9 (3.4-5.0) mmol/L Chloride 100 (98-107) mmol/L Carbon Dioxide 28 (22-30) mmol/L Anion Gap 13 H (4-12) mmol/L BUN 12 (9-20) mg/dL Creatinine 0.75 (0.7-1.3) mg/dL Estim Creat Clear Calc 143 ml/min Estimated GFR > 60 (59 - ) Glucose 90 (65-110) mg/dL Calcium 10.0 (8.4-10.2) mg/dL Magnesium Cancelled 1.9 TSH (Reflex) 7.380 H (0.465-4.68) uIU/mL Free T4 1.02 (0.78-2.19) ng/dL Total T3 2.02 H (0.97-1.69) NG/ML Urine Opiates Screen Negative (Negative) Urine Methadone Screen Negative (Negative) Ur Barbiturates Screen Negative (Negative) Ur Phencyclidine Scrn Negative (Negative) Ur Amphetamine Screen Negative (Negative) U Benzodiazepines Scrn Negative (Negative) Urine Cocaine Screen Negative (Negative) U Cannabinoids Screen Negative (Negative) ECG Data EKG #1: Attestation: I personally reviewed and interpreted this ECG as follows: ECG completion date: 02/19/25 ECG completion time: 22:13 Prior ECG tracings: not available for review Interpretation: No ST segment elevations, depressions or inversions. No ectopy. Normal sinus rhythm. QTC 458, QRS interval 98 VA VA interval 159. No previous EKG for comparison. Found to protection normal sinus rhythm. Discharge Plan Discharge Clinical Impression: Palpitations, Subclinical hypothyroidism Patient Disposition: Home, Self-Care Condition: Stable Instructions: Antibiotic Form, Subclinical Hypothyroidism (ED) Additional Instructions: Your workup here was very reassuring. Your TSH which is a thyroid level was slightly elevated however your T4 level was normal so this is subclinical hypothyroidism and could be a potential cause or related to your palpitations sensations. Bring this up to your doctor tomorrow during your regular visit to see if you need medications for this. If you experience any emergencies return to the ER otherwise follow-up with regular doctors. Patient Language: Albanian Prescriptions: No Action No Home Medications Follow-up/Referrals: David,Nigel Garzon MD [Primary Care Provider] - Time of Disposition: 00:23
--- OUTSIDE RECORDS SUMMARY | 2025-02-19 22:23 | XMS_ITS | Clinical Summary ---
Author Organization [facility] Address [address] Messer: Epic Prelude ADT TAMMIE MCADAMS [address] Care Team Providers Care Orthotic/Prosthetic Clinician Name Role Phone Unavailable Primary Care Provider Unavailabl e Medications azithromycin (Zithromax Z-Perry) 250 mg tablet TAKE 2 TABLETS (500 MG) BY ORAL ROUTE ONCE DAILY FOR 1 DAY THEN 1 TABLET (250 MG) BY ORAL ROUTE ONCE DAILY FOR 4 DAYS 6 Tablet 12/28/2022 12:56 PM SOFTWARE SUPPORT TECHNICIAN 12/28/2022 Active benzonatate (TESSALON) 200 mg capsule Take 1 Capsule (200 mg) by mouth 3 times daily. 21 Capsule 12/02/2023 2:08 PM SOFTWARE SUPPORT TECHNICIAN 12/02/2023 Active methylPREDNISol one (MEDROL DOSPACK) 4 [...] times daily. 21 Capsule 01/23/2025 5:06 PM SOFTWARE SUPPORT TECHNICIAN 01/23/2025 Active azithromycin (Zithromax Z-Perry) 250 mg tablet TAKE 2 TABLETS BY MOUTH A SINGLE DOSE ON DAY 1, THEN TAKE 1 TABLET ONCE DAILY ON DAYS 2 THRU 5. 6 Tablet 01/23/2025 5:06 PM SOFTWARE SUPPORT TECHNICIAN 01/23/2025 Active Social History Tobacco Use Types [...]
--- OUTSIDE RECORDS SUMMARY | 2025-02-19 22:23 | XMS_ITS | Clinical Summary ---
Author Organization [facility] [employer] Address [address] [place] [address] Care Team Providers Care Timber Management Professor Name Role Phone Nigel Hernandez MD Primary Care Provider [phone] Source Comments [facility] [employer],non-owned Affiliates and Associated Physician Practices is amultiple site organization consisting of ambulatory clinics and hospital sitesin [place], [place], [place] and [place]. This disclosure is being madepursuant to the Care Everywhere program and may not contain all information available regarding this patient. Last updated 18.[facility] [employer] Allergies Active Allergy Reactions Criticality Noted Date [...] lb 0.6 oz) 09/26/2015 8:54 A M SECURITIES ADVISER Height 178.9 cm (5' 10.43 ) 09/26/2015 8:[address] Body Mass Index 29.48 09/26/2015 8:54 AM SECURITIES ADVISER Plan of Treatment Health Maintenance Due Date [...] age to complete this topic Care Teams Timber Management Professor Relationship Specialty Start Date End Date Nigel Hernandez MD [address] [place] [phone] PCP - General Internal Medicine 07/31/15
--- OUTSIDE RECORDS SUMMARY | 2025-02-19 22:23 | XMS_ITS | Clinical Summary ---
Author Organization Address [address] [place] [phone] Care Team Providers Care Precinct I Police Sergeant Name Role Phone Unavailable Primary Care Provider Unavailabl e Social History Tobacco Use Types Packs/Day Years Used Date Smoking Tobacco: Never Assessed Sex and Gender Information Value Date Recorded Sex Assigned at Not on file Legal Sex Male 2:14 PM GAS OR PETROLEUM OPERATOR Gender Identity Not on file Sexual Orientation [...]
--- OUTSIDE RECORDS SUMMARY | 2025-02-19 22:23 | XMS_ITS | Referral Summary ---
Author Organization [facility] Address [address] [place] [address] Care Team Providers Care Paper Final Inspector Name Role Phone Nigel Hernandez MD Primary Care Provider Allergies Active Allergy Reactions Criticality Noted Date Comments Amoxicillin Rash Medium 08/01/2015 Penicillins Rash Medium Medications No known medications Active Problems Problem Noted Date Diagnosed Date Current tear of lateral cartilage or meniscus of knee 01/30/2019 Overview (01/30/2019): Added automatically from request for surgery [id number] Knee pain 10/06/2013 Social History Tobacco Use Types Packs/Day Years Used Date Smoking Tobacco: Never Smokeless Tobacco: Current Chew Alcohol Use Standard Drinks/Week Comments Not Currently 0 (1 standard drink = 0.6 oz pur e alcohol) Sex and Gender Information Value Date Recorded Sex Assigned at Not on file Legal Sex Male 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
--- OUTSIDE RECORDS SUMMARY | 2025-02-19 22:23 | XMS_ITS | Clinical Summary ---
Author Organization [facility] Address [address] [place] [address] Care Team Providers Care Tool And Machine Maintainer Name Role Phone Nigel Hernandez MD Primary Care Provider Allergies Active Allergy Reactions Criticality Noted Date Comments Amoxicillin Rash Medium 08/01/2015 Penicillins Rash Medium Medications No known medications Active Problems Problem Noted Date Diagnosed Date Current tear of lateral cartilage or meniscus of knee 01/30/2019 Overview (01/30/2019): Added automatically from request for surgery [id number] Knee pain 10/06/2013 Surgical History Surgery Date [...] on file Legal Sex Male 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
--- OUTSIDE RECORDS SUMMARY | 2025-02-19 22:23 | XMS_ITS | CONTINUITY OF CARE DOCUMENT ---
Author Name musa bhupendracynthia Address Unknown Organization [facility] Address [address] [place] [address] [address] [place] [address] Phone [phone] Care Team Providers Care Converter Operator Name Role Phone En MNEA, Anibal Unavailable LIZ MENA, NANCIE Unavailable NANCIE HILL MD Unavailable PROBLEMS Condition Status Date Provider Notes Cardiology examination active Kanu Ahmedzai Palpitations active Kanu Ahmedzai Chest discomfort active Kanu Ahmedzai ENCOUNTERS Date Type Provider Location Encounter Diag nosis - In-person encounter Office Visit Anibal Gatica MD [place] [facility] Cardiology examinationPalpitationsChest discomfort VITAL SIGNS Date [...] Policy type / Coverage type Ilya red constitution party ID EDITH Commercial insurance company [id number] [facility] [id number] Other [id number] ADVANCE DIRECTIVES Name Date DISCUSSED - NO DECISION MADE TREATMENT PLAN Date Name Performer Cardiology: O rders: M onitor - Telemetry (Mobile Cardiac) (CPT-92133) C omplete Echo ([id number]) Anibal Gatica MD Date Name TSH, free T4, total T3 Microalb/Creatinine Urine, Random Ca+PTH Intact CBC (INCLUDES DIFF/P LT) LIPID PANEL COMPREHENSIVE METABO LIC PANEL, W/EGFR Complete Echo Monitor - Telemetry (Mobile Cardiac) HISTORY OF PROCEDURES Procedure Date Procedure Name Provider Procedure Notes S tatus EKG Anibal Gatica MD completed
[2025-02-19 22:32] LABS: Anion Gap 13 mmol/L (4-12); Blood Urea Nitrogen 12 mg/dL (9-20); Carbon Dioxide 28 mmol/L (22-30); Chloride 100 mmol/L (98-107); Estimated CRCL calculation 143 ml/min; Estimated Glomerular Filt Rate > 60; Glucose 90 mg/dL (65-110); Magnesium 1.9 mg/dL (1.6-2.3); Potassium 3.9 mmol/L (3.4-5.0); Sodium 141 mmol/L (137-145)
[2025-02-19] MEDS: LACTATED RINGERS 1,000 ML 999 ML IV CONT (22:32)
[2025-02-19 22:44] LABS: Barbiturate Screen Urine Negative (Negative); Benzodiazepines Screen Urine Negative (Negative)
[2025-02-19 22:46] LABS: Amphetamine Screen Urine Negative (Negative); Cannabinoid Screen Urine Negative (Negative); Cocaine Screen Urine Negative (Negative); Methadone Screen Urine Negative (Negative); Opiate Screen Urine Negative (Negative); Phencyclidine Screen Urine Negative (Negative)
[2025-02-19 22:48] VITALS: BP 144/76; PULSE 61; RESP 15; O2SAT 100
[2025-02-19 23:41] VITALS: BP 104/82; PULSE 63; RESP 22; O2SAT 97
[2025-02-20 00:05] LABS: Free T4 Free Thyroxine Reflex 1.02 ng/dL (0.78-2.19)
[2025-02-20 00:53] LABS: Total Triiodothyronine (T3) 2.02 NG/ML (0.97-1.69)
== END 2025-02-20 00:29 | disposition home or self-care (01) ==
PROVIDERS: Emergency Provider Student in an Organized Health Care Education/Training Program; PCP Internal Medicine
DX: R00.2 Palpitations (principal); E03.8 Other specified hypothyroidism; F17.220 Nicotine dependence, chewing tobacco, uncomplicated
CPT/HCPCS: 36415; 71045; 80048; 80307; 83735; 84439; 84443; 84480; 85025; 93005; 99284; J7120

== ENCOUNTER 2025-04-11 23:27 | Emergency (ER) | payer OTHER, SELFPAY ==
--- NOTE | ~2025-04-11 | XR_ITS ---
CHEST RADIOGRAPH, PA AND LATERAL CLINICAL HISTORY: chest tightness HIGH BP . COMPARISON: 02/19/2025 TECHNIQUE: PA and lateral views of the chest. FINDINGS The cardiomediastinal silhouette is unremarkable. The lungs are clear. Visualized osseous structures and soft tissues are unremarkable. IMPRESSION: No focal infiltrate or effusion. Reviewed, dictated and finalized at location A.
--- OUTSIDE RECORDS SUMMARY | 2025-04-11 23:29 | XMS_ITS | Clinical Summary ---
Author Organization [facility] Address [address] Messer: Epic Prelude ADT TAMMIE MCADAMS [address] Care Team Providers Care Editorial Clerk Name Role Phone Unavailable Primary Care Provider Unavailabl e Medications azithromycin (Zithromax Z-Perry) 250 mg tablet TAKE 2 TABLETS (500 MG) BY ORAL ROUTE ONCE DAILY FOR 1 DAY THEN 1 TABLET (250 MG) BY ORAL ROUTE ONCE DAILY FOR 4 DAYS 6 Tablet 12/28/2022 12:56 PM MAINTENANCE ANALYST 12/28/2022 Active benzonatate (TESSALON) 200 mg capsule Take 1 Capsule (200 mg) by mouth 3 times daily. 21 Capsule 12/02/2023 2:08 PM MAINTENANCE ANALYST 12/02/2023 Active methylPREDNISol one (MEDROL DOSPACK) 4 [...] times daily. 21 Capsule 01/23/2025 5:06 PM MAINTENANCE ANALYST 01/23/2025 Active azithromycin (Zithromax Z-Perry) 250 mg tablet TAKE 2 TABLETS BY MOUTH A SINGLE DOSE ON DAY 1, THEN TAKE 1 TABLET ONCE DAILY ON DAYS 2 THRU 5. 6 Tablet 01/23/2025 5:06 PM MAINTENANCE ANALYST 01/23/2025 Active Social History Tobacco Use Types Packs/Day Years Used Date Smoking Tobacco: Never Assessed Sex and Gender Information Value Date Recorded Sex Assigned at Not on file Legal Sex Male 3:27 PM CDT Gender Identity Not on file Sexual Orientation Not on file Plan of Treatment Health Maintenance Due Date Last Done Comments HPV VACCINES (1 - Male 3-dose series) 2014 DTAP/TDAP/TD VACCINES (1 - Tdap) 2018 HEPATITIS B VACCINES (1 of 3 - 19+ 3-dose series) 07/24 INFLUENZA VACCINE (#1) 2024 Insurance [employer] [facility]
--- OUTSIDE RECORDS SUMMARY | 2025-04-11 23:29 | XMS_ITS | Clinical Summary ---
Author Organization [facility] Address [address] [place] [address] Care Team Providers Care Precinct Captain Name Role Phone Nigel Hernandez MD Primary Care Provider Allergies Active Allergy Reactions Criticality Noted Date Comments Amoxicillin Rash Medium 08/01/2015 Penicillins Rash Medium Medications No known medications Active Problems Problem Noted Date Diagnosed Date Current tear of lateral cartilage or meniscus of knee 01/30/2019 Overview (01/30/2019): Added automatically from request for surgery [id number] Knee pain 10/06/2013 Surgical History Surgery Date [...] on file Legal Sex Male 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
--- OUTSIDE RECORDS SUMMARY | 2025-04-11 23:29 | XMS_ITS | Referral Summary ---
Author Organization [facility] Address [address] [place] [address] Care Team Providers Care Picu Nurse Name Role Phone Nigel Hernandez MD Primary Care Provider Allergies Active Allergy Reactions Criticality Noted Date Comments Amoxicillin Rash Medium 08/01/2015 Penicillins Rash Medium Medications No known medications Active Problems Problem Noted Date Diagnosed Date Current tear of lateral cartilage or meniscus of knee 01/30/2019 Overview (01/30/2019): Added automatically from request for surgery [id number] Knee pain 10/06/2013 Social History Tobacco Use Types Packs/Day Years Used Date Smoking Tobacco: Never Smokeless Tobacco: Current Chew Alcohol Use Standard Drinks/Week Comments Not Currently 0 (1 standard drink = 0.6 oz pur e alcohol) Sex and Gender Information Value Date Recorded Sex Assigned at Not on file Legal Sex Male 9:43 AM REVENUE CYCLE SPECIALIST Gender Identity Not on file Sexual Orientation [...] Plan of Treatment Not on file Insurance [facility] CHOICE PLUS [facility] HMO/PPO Address: [place] [address] [facility] CHOICE PLUS [facility] H[facility]/[place] [address] [facility] CHOICE PLUS [facility] HMO/PPO Address: [place] [address] Care Teams Picu Nurse Relationship Specialty Start Date End Date Nigel Hernandez MD PCP - General Internal Medicine 01/27/19
--- OUTSIDE RECORDS SUMMARY | 2025-04-11 23:29 | XMS_ITS | Clinical Summary ---
Author Organization [facility] Address [address] [place] [phone] Care Team Providers Care Manager Fire Name Role Phone Unavailable Primary Care Provider Unavailabl e Social History Tobacco Use Types Packs/Day Years Used Date Smoking Tobacco: Never Assessed Sex and Gender Information Value Date Recorded Sex Assigned at Not on file Legal Sex Male 2:14 PM CRAYON SORTING MACHINE FEEDER Gender Identity Not on file Sexual Orientation [...]
--- OUTSIDE RECORDS SUMMARY | 2025-04-11 23:29 | XMS_ITS | Clinical Summary ---
Author Organization [facility] [employer] Address [address] [facility] [place] [address] Care Team Providers Care Golf Course Architect Name Role Phone Nigel Hernandez MD Primary Care Provider [phone] Source Comments [facility] [employer],non-owned Affiliates and Associated Physician Practices is amultiple site organization consisting of ambulatory clinics and hospital sitesin [place], [place], [place] and [place]. This disclosure is being madepursuant to the Care Everywhere program and may not contain all information available regarding this patient. Last updated 18.[facility] [employer] Allergies Active Allergy Reactions Criticality Noted Date Comments Amoxicillin Rash Low 08/01/2015 Medications * Be aware that medications may not be up to date on this document. Alwaysverify current medications with the patient. No known [...] at Not on file Legal Sex Male 9:46 AM CDT Gender Identity Not on file Sexual Orientation Not on file Last Filed Vital Signs Vital Sign Reading Time Taken Comments Blood Pressure - - Pulse - - Temperature - - Respiratory Rate - - Oxygen Saturation - - Inhaled Oxygen Concentration - - Weight 94.4 kg (208 lb 0.6 oz) 09/26/2015 8:54 A M FLOSSER Height 178.9 cm (5' 10.43 ) 09/26/2015 8:[address] Body Mass Index 29.48 09/26/2015 8:54 AM FLOSSER Plan of Treatment Health Maintenance Due Date Last Done Comments HIV SCREENING 2014 HPV VACCINE (1 - Male 3-dose series) 2014 HEPATITIS C SCREENING 08/11/2017 DTAP/TDAP/TD VACCINES (1 - Tdap) 2018 HEPATITIS B VACCINE (1 of 3 - 19+ 3-dose series) 2018 COVID-19 VACCINE (1 - 2023-2 5 season) 2024 DEPRESSION SCREENING 11/22/2024 INFLUENZA VACCINE (Season Ended) 2025 ZOSTER VACCINE (1 of 2) 2049 HIB [...] patient's age to complete this topic Insurance Care Teams Golf Course Architect Relationship Specialty Start Date End Date Nigel Hernandez MD [address] [place] [address] [address] [place] [address] PCP - General Internal Medicine 07/31/15
--- OUTSIDE RECORDS SUMMARY | 2025-04-11 23:29 | XMS_ITS | Data Portability ---
Author Organization [place] [facility], Main Office Address [address] [place] [address] Care Team Providers Care Extraction Supervisor Name Role Phone LIZ NANCIE Primary Care Provider NANCIE HERNANDEZ Referring Provider [phone] Assessment No assessment recorded. Plan of Treatment Reminders Order Date Submit Date Provider Last Modified By Organization Details Last Modified Time Details Appointments None recorded. Lab lipid panel, serum 2023 024 [email or web address] [facility], [address] [place], [address], 4 17:03:03 CRP, high sensitivity , serum or plasma 2023 024 [facility], [address] [place], [address], 4 09:58:11 Referral None recorded. Procedures None recorded. Surgeries None recorded. Imaging None recorded. Medication Orders Zithromax Z-Perry 250 mg tablet 2024 025 [facility], [address], [place], [place], [id number], 5 17:25:20 benzonatate 200 mg capsule 2024 025 [facility], [address], [place], [place], [id number], 5 17:25:20 Bactrim DS 800 mg-160 mg tablet 2023 024 [email or web address] [facility] [place], [address] [facility] , [place], [place], [id number], 17:09:11 Patient TargetsNo targets recorded. Patient Instructions Encounter Date Encounter Id Patient Instructions Last Modified By Organization Details Last Modified Time 02/25/2024 [id number] risk assessment* [email or web address] Not availabl e 02/25/2024 17:01:47 INFLUENZA VACCIN [...] SCREENING Not needed LIPID SCREENING Not needed [email or web address] Not available 02/25/2024 16:33:44 Wellness evaluation risk [...] with voice recognition software. Occasional wrong-word or aduzh-g-qfjg substitutions may have occurred due to the inherent limitations of voice recognition software. Read the chart carefully and recognize, using context, where substitutions have occurred. [email or web address] Not available 02/25/2024 17:01:05 04/20/2024 [id number] Epidermoid cyst of the neck will give a trial of some antibiotics in the form of Bactrim ds one b.i.d. For seven days. Instructed let us know if there is no improvement may need to consider further evaluation. Keep Appointment: [facility] 03 01 2025 04:00 PM [place] Portions of the record may have been created with voice recognition software. Occasional wrong-word or kqurp-l-ihez substitutions may have occurred due to the inherent limitations of voice recognition software. Read the chart carefully and recognize, using context, where substitutions have occurred. [email or web address] Not available 04/20/2024 16:50:12 01/23/2025 [id number] Senna bronchitis will give a trial of Z-Perry some benzoate. If no improvement will need to consider further diagnostic evaluation. Keep Appointment: [facility] 03 01 2025 04:00 PM [place] Portions of record are template driven. When necessary additional context will be provided. Additionally some portions have been created with voice recognition software. Occasional wrong-word or cauwo-k-sjep substitutions may have occurred due to the inherent limitations of voice recognition software. Read the chart carefully and recognize, using context, where substitutions may have occurred. Created: Nancie Hernandez M.D. 01.23.2025 04:26 PM Not available 01/23/2025 17:26:14 Reason for Referral None Reported. Results Created Date Observation Date Name Description Value Unit Range Abnormal Flag Note LastModifiedBy Organization Detail LastModifiedTime 10/26/20 22 10/26/2022 COVID /FLU/ RSV PCR PANEL sars-cov-2 RNA(covid19) ,RT-PCR negati ve Not Available [facility] (Lab) [address] [place], [address], 10/26/2022 16:00:38 10/26/20 22 10/26/2022 COVID /FLU/ RSV PCR PANEL influenza A RNA, RT-PCR negati ve Not Available [facility] (Lab) [address] [place], [address], 10/26/2022 16:00:38 10/26/20 22 10/26/2022 COVID /FLU/ RSV PCR PANEL influenza B RNA, RT-PCR negati ve Not Available [facility] (Lab) [address] [place], [address], 10/26/2022 16:00:38 10/26/20 22 10/26/2022 COVID /FLU/ RSV PCR PANEL RSV/resp.syn ctial virus,RT-PCR negati ve Not Available [facility] (Lab) [address], [place], [address], 10/26/2022 16:00:38 02/27/20 25 02/27/2025 TSH+F REE T4 TSH 2.09 mIU/L 0.40-4 .50 normal Not Available [facility] [address] [place], [address], 02/27/2025 04:13:36 02/27/20 25 02/27/2025 TSH+F REE T4 T4, free 1.1 NG/dL 0.8-1. [address] to have a Resolver[employer] celeste copy faxed has been salma [place] [phone] [facility] [address], [place], [address], 02/27/2025 04:13:36 02/20/20 25 02/19/2025 XR, chest No observ ation record ed. [address], [place], [address], 02/20/2025 08:56:29 02/22/20 25 02/20/2025 , echoc ardio gram No observ ation record ed. [address] [facility] [address], [place], [address], 02/21/2025 09:07:27 04/09/20 25 04/04/2025 sleep study , diagn ostic (PROC ) No observ ation record ed. [address] [facility] [address], [place], [address], 04/09/2025 09:19:53 Result Notes None recorded. Problems Name Problem SNOMED Code Status Onset Date Resolution Date Notes Provider Name and Address Organization Details Recorded Time Constipation 30779139 Active 2021 Not Available [facility] 17:00:29 Acute sinusitis 63716679 Active 2021 Not Available [facility] 3 17:00:29 Asthma 697199959 Active Not Available [facility] 3 17:00:29 Current tear of medial cartilage AND/OR meniscus of knee Active Not Available [facility] 3 17:00:29 Current tear of lateral cartilage AND/OR meniscus of knee Active Not Available [facility] 3 17:00:29 Knee pain Active Not Available [facility] 3 17:00:29 Patellar tendonitis 15957355 Active Not Available [facility] 3 17:00:29 Hematoma 979122009 Active 2016 Not Available [facility] 3 17:00:29 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 Not Available [facility] 3 17:00:29 Acute bronchitis 22004154 Active 2023 Nancie Hernandez MD [address] [facility], [facility] [address], [place], [address] , [place] [facility] 4 13:52:14 Allergic rhinitis 24007758 Active 2023 Nancie Hernandez MD [address] [facility], [place], [address] , [facility] 4 16:56:22 Epidermoid cyst of skin of neck 665164676 Active 2023 Nancie Hernandez MD [address], [place], [address] , [place] [facility] [place] [facility] 4 16:49:34 Tachycardia 3239336 Active 2024 MIMI Odell, [place] [facility] 5 11:16:12 Thyroid function tests abnormal 744444102 Active 2024 MIMI dOell, [place] [facility] 5 16:48:14 Dizziness 662597639 Active 2024 Natalia Mcdowell CMA null, [place] [facility] 5 17:18:51 Problem Notes None recorded. Procedures Surgical History None recorded. Imaging Results Imaging Date Name Status LastModified by Organization Details LastModified Time 02/19/2025 XR, chest completed [address], [place], [address], 02/20/2025 08:56:29 02/20/2025 US, echocardiogram completed [address] [facility] [address], [place], [address], 02/21/2025 09:07:27 04/04/2025 sleep study, diagnostic (PROC) completed [address] [facility] [address], [place], [address], 04/09/2025 09:19:53 Procedure Notes None recorded. Medical Equipment None Reported. Allergies Allergen ID Allergen Name Allergen Category Reaction Reaction Severity Criticality Documentation Date Start Date Code Code System Note Provider Name and Address Organization Details Recorded Time 56365 amoxicill in medicatio n rash Not available Not available 01/20/2023 723 RxNorm Not Available [facility] 17:01:53 Medications Name Sig Start Date Stop [...] cm 76 /min 12 /min 97.5 [degF] 758437. 17 g 126 mm[Hg] 62 mm[Hg] Not Available [facility] 3 16:59:58 Date Recorded Oxygen saturation Oxygen saturation in Arterial blood by Pulse oximetry Heart rate Body temperature Body weight Systolic blood pressure Diastolic blood pressure Provider Name and Address Organization Details Last Updated DateTime 2 98 % 98 % 76 /min 97.6 [degF] 85121.7 3 g 134 mm[Hg] 80 mm[Hg] Not Available [facility] 3 16:59:58 Date Recorded Body height Body mass index (BMI) Body weight Heart rate Body temperature Oxygen saturation Oxygen saturation in Arterial blood by Pulse oximetry Systolic blood pressure Diastolic blood pressure Provider Name and Address Organization Details Last Updated DateTime 4 179.07 cm 31.5 kg/m2 991619. 1 g 73 /min 97 [degF] 97 % 97 % 120 mm[Hg] 68 mm[Hg] Keke ROSAS [facility] [place] [employer] [facility] 4 16:28:29 Date Recorded Body height Body mass index (BMI) Body weight Heart rate Body temperature Oxygen saturation Oxygen saturation in Arterial blood by Pulse oximetry Systolic blood pressure Diastolic blood pressure Provider Name and Address Organization Details Last Updated DateTime 4 179.07 cm 30.3 kg/m2 48758.7 7 g 80 /min 97.6 [degF] 98 % 98 % 118 mm[Hg] 72 mm[Hg] [facility] 4 16:40:23 Date Recorded Body height Body mass index (BMI) Body weight Heart rate Body temperature Oxygen saturation Oxygen saturation in Arterial blood by Pulse oximetry Systolic blood pressure Diastolic blood pressure Provider Name and Address Organization Details Last Updated DateTime 5 179.07 cm 31.7 kg/m2 281722. 69 g 79 /min 97 [degF] 97 % 97 % 120 mm[Hg] 78 mm[Hg] Keke Santiago [employer] [facility] 5 17:09:01 Social History None recorded. Functional Status None recorded. Mental Status None recorded. Family History Nothing Reported Notes:Mother living 51 in [facility] hip surgery Father living 51 in good [...] EAR OR HEARING PROBLEMS N MUMPS N BOWEL PROBLEMS N DEPRESSION (INCLUDING POST ) N STROKE/TIA N ULCERS N BENIGN PROSTATIC [...] N CHRONIC PAIN SYNDROME N HYPOTHYROIDISM N CONSTIPATION N CAROTID BLOCKAGE N BACK / NECK PROBLEMS N HAVE YOU BEEN HOSPITALIZED OR SEEN IN [facility] IN THE PAST YEAR ? N [...] Immunizations Vaccine Type Date Status Note Provider Nam e and Address Organization Details Recorded Time meningococcal MCV4P 7 completed Not Available [facility] 01/20/2023 17:01:47 Hib (HbOC) 0 completed Not Available [facility] 01/20/2023 17:01:47 OPV 9 completed Not Available [facility] 01/20/2023 17:01:47 DTaP 9 completed Not Available [facility] 01/20/2023 17:01:47 HPV, quadrivalent 3 completed Not Available [facility] 01/20/2023 17:01:47 meningococcal B, unspecified 1 completed Not Available [facility] 01/20/2023 17:01:48 DTaP 5 completed Not Available [facility] 01/20/2023 17:01:48 MMR 4 completed Not Available [facility] 01/20/2023 17:01:48 Hep A, ped/adol, 2 dose 2 completed Not Available [facility] 01/20/2023 17:01:48 IPV 1 completed Not Available [facility] 01/20/2023 17:01:48 Hep A, ped/adol, 2 dose 1 completed Not Available [facility] 01/20/2023 17:01:48 IPV 1 completed Not Available [facility] 01/20/2023 17:01:49 MMR 1 completed Not Available [facility] 01/20/2023 17:01:49 DTaP 0 completed Not Available [facility] 01/20/2023 17:01:49 IPV 0 completed Not Available [facility] 01/20/2023 17:01:49 Hep B, adolescent or pediatric 0 completed Not Available [facility] 01/20/2023 17:01:49 HPV, quadrivalent 2 completed Not Available [facility] 01/20/2023 17:01:49 HPV, quadrivalent 1 completed Not Available [facility] 01/20/2023 17:01:49 Tdap 1 completed Not Available [facility] 01/20/2023 17:01:49 DTaP 1 completed Not Available [facility] 01/20/2023 17:01:49 Hib, unspecified formulation 1 completed Not Available [facility] 01/20/2023 17:01:50 varicella 0 completed Not Available [facility] 01/20/2023 17:01:50 DTaP 0 completed Not Available [facility] 01/20/2023 17:01:50 Hep B, adolescent or pediatric 0 completed Not Available [facility] 01/20/2023 17:01:50 Hib, unspecified formulation 0 completed Not Available [facility] 01/20/2023 17:01:50 Hib-Hep B 0 completed Not Available [facility] 01/20/2023 17:01:50 Past Encounters Encounter ID Performer Location Encounter Start Date Encounter Closed Date Diagnosis/Indication Diagnosis SNOMED-CT Code Diagnosis ICD10 Code Diagnosis Note [id number] MD MARCELLA [facility] [place] [address] [place] [address] 02/28/2021 00:00:00 02/28/2021 16:46:24 [id number] Nancie Hernandez MD [facility] [place] [address] [place] [address] 08/04/2022 00:00:00 08/04/2022 11:25:30 [id number] Nancie Hernandez MD [facility] [place] [address] [facility] [place] [address] 02/25/2024 16:22:06 02/25/2024 17:05:48 Adult health examination 949732245 Z00.00 Depression screening 171 544496 Z13.31 Allergic rhinitis 760142 04 J30.9 Screening for cardiovascular system disease 463350245 Z13.6 [id number] Nancie Hernandez MD [facility] [place] [address] [place] [address] [place] [address] 04/20/2024 16:32:43 04/20/2024 16:52:15 Epidermoid cyst of skin of neck 207199661 L72.0 [id number] Nancie Hernandez MD [facility] Internal Med [facility] [address] [facility] [address] [place] [address] 01/23/2025 16:55:48 01/23/2025 17:27:37 Acute bronchitis 73821630 J20.9 J20.0 J20.1 J20.2 J20.3 J20.4 J20.5 J20.6 J20.7 J20.8 Health Concerns Section Related Observation LastModified by Organization Detai ls LastModified Time None Recorded Concern Status LastModified by Organization Details LastModified Time None Recorded Advance Directives Directive None Recorded Payers Encounter Date Sequence Insurance Name Policy Number Policy Muniz Covered Member ID Muniz Member ID Guarantor Name 02/25/2024 1 LOPENO Reppler - CHOICE PLUS [id number] Abbie Chs [id number] [employer] 04/20/2024 1 [employer]O Reppler - CHOICE PLUS [id number] Abbie R Tran [id number] Dereck Tran 01/23/2025 1 LOPENO Reppler - CHOICE PLUS [id number] Abbie R Tran [id number] [employer] Notes Date Note Type Note Provider Name and Address Organization Details Recorded Time 02/25/2024 text/html Patient Name: Rose Marie Diazate Of Service: Wednesday ( 02.25.2024 ): 2000 [...] in good health. Nancie Hernandez MD [address], [address], [place] [facility] [employer] 02/25/2024 17:01:50 04/20/2024 text/html Patient Name: Rose [...] No other accompanying lymphadenopathy.: Nancie Hernandez MD [address] [place] [address], [place], [address], [facility] [employer] 04/20/2024 16:51:17 01/23/2025 text/html Patient Name: Rose [...] in good health. Nancie Hernandez MD [address] [facility], [facility] [address], [place], [address], [place] [facility] 01/23/2025 17:26:24
--- OUTSIDE RECORDS SUMMARY | 2025-04-11 23:30 | XMS_ITS | CONTINUITY OF CARE DOCUMENT ---
Author Name musa vigil Address Unknown Organization [facility] Address [address] [place] [address] [address] [place] [address] Phone [phone] Care Team Providers Care Director Inbound Sales Name Role Phone En MENA, Anibal Unavailable LIZ MENA, NANCIE Unavailable [phone] LIZ MENA, NANCIE Unavailable [phone] PROBLEMS Condition Status Date Provider Notes Cardiology examination active Kanu Ahmedzai Palpitations active Kanu Ahmedzai Chest discomfort active Kanu Ahmedzai Snoring active Naomy Ventimiglia SYSTEM ADMINISTRATION MANAGER ENCOUNTERS Date Type Provider Location Encounter Diag nosis - In-person encounter Office Visit Anibal Gatica MD [facility] Snoring - In-person encounter Office Visit Anibal Gatica MD [facility] Cardiology examinationPalpitationsChest discomfort VITAL SIGNS Date Observation Value Provider Body Mass Index (Ratio) 31.46 kg/m2 Barrington Gatica MD blood pressure, diastolic 70 mm[Hg] Am daniel Ventimiglia SYSTEM ADMINISTRATION MANAGER blood pressure, systolic 132 mm[Hg] [place] nda Ventimiglia SYSTEM ADMINISTRATION MANAGER pulse rate 68 /min Naomy Ventimig gege SYSTEM ADMINISTRATION MANAGER oxygen saturation, oximetry 99 % Naomy Ventimiglia SYSTEM ADMINISTRATION MANAGER respiratory rate E&M 16 /min Naomy Ventimiglia SYSTEM ADMINISTRATION MANAGER height E&M 72 [in_i] Naomy Ventimig gege [facility] weight E&M 232 [lb_av] Naomy Ventimig gege [facility] Body Mass Index (Ratio) 31.05 kg/m2 Barrington Gatica MD pulse rate 57 /min Vale sanderson oxygen saturation, oximetry 95 % Vale Burleson blood pressure, diastolic 73 mm[Hg] Ti cody Burleson blood pressure, systolic 124 mm[Hg] Jesus Burleson height E&M 72 [in_i] Vale Contreras s blood pressure, cuff size regular Ti cody Burleson weight E&M 229 [lb_av] Vale sanderson ALLERGIES Allergy Name Onset Date Reaction Criticality Status AMOXICILLIN High Criticality active PENICILLIN High Criticality active SOCIAL HISTORY Date Observation Value Provider smoking, year quit 2024 Naomy Ve ntimiglia [facility] cigarette use yes Naomy Ventimi glia [facility] personal history of marijuana use no Naomy Ventimiglia [facility] drug use no Naomy Ventimig gege [facility] alcohol use, average drinks per day socia l Naomy Ventimiglia [facility] alcohol use yes Naomy Ventimig gege [facility] smoking status Former smoker Naomy Venti miglia [facility] INSURANCE PROVIDERS Payer name Policy type / Coverage type [place] red [employer] party ID [employer]IG[employer] Overdog insurance [employer] [id number] [facility] [id number] Other [id number] ADVANCE DIRECTIVES Name Date DISCUSSED - NO DECISION MADE TREATMENT PLAN Date Name Performer Cardiology:no longer have chest pain e cho showed normal EF W ill monitor Naomy Ventimiglia [facility] Cardiology:with conc rickey for ULYSSES based upon symptoms and tele monitor W ill plan for [facility] Naomy Ventimiglia [facility] Cardiology:Continues to have episodes, but not as often H e had echo that shows normal EF and no valvular abnormalities. H is tele montior showed a NSR with averge HR of [address] encouraged sleep, increased fuids and exercise W ill monitor Naomy Ventimiglia [facility] Cardiology: O rders: M onitor - Telemetry (Mobile Cardiac) (CPT-[id number]) C omplete Echo ([id number]) Anibal Gatica MD Date Name Sleep Study TSH, free T4, total T3 Microalb/Creatinine Urine, Random Ca+PTH Intact CBC (INCLUDES DIFF/P LT) LIPID PANEL COMPREHENSIVE METABO LIC PANEL, W/EGFR Complete Echo Monitor - Telemetry (Mobile Cardiac) HISTORY OF PROCEDURES Procedure Date Procedure Name Provider Procedure Notes S tatus EKG Anibal Gatica MD completed
--- NOTE | 2025-04-11 23:31 | ECG_ITS ---
Test Date: 2025-04-11 23:35:13 Measurements Intervals [place] Rate: 62 P: 60 KS: 171 QRS: 72 QRSD: 97 T: 67 QT: 404 QTc: 411 Interpretive Statements SINUS RHYTHM RSR' IN V1 OR V2, PROBABLY NORMAL VARIANT Compared to ECG 02/19/2025 22:13:49 No significant changes Electronically Signed On 04-12-2025 14:03:51 CDT by Bashir Caldwell M.D.
[2025-04-11 23:32] VITALS: BP 143/82; PULSE 70; RESP 18; TEMP 36.5; O2SAT 100
[2025-04-11 23:47] LABS: Basophils Absolute Auto 0.1 K/mm3 (0.0-0.1); Basophils Percent Auto 0.6 % (0.2-1.2); Eosinophils Absolute Auto 0.1 K/mm3 (0-0.3); Eosinophils Percent Auto 1.4 % (0-4.4); Hematocrit 48.2 % (42.0-52.0); Hemoglobin 16.9 g/dL (14.0-18.0); Immature Granulocyte Absolute 0.04 K/mm3 (0.00-0.031); Immature Granulocyte Percent A 0.5 % (0-0.5); Lymphocytes Absolute Auto 2.97 K/mm3 (0.9-3.2); Mean Corpuscular HGB Conc 35.1 g/dl (32-36); Mean Corpuscular Hemoglobin 30.1 pg (26-34); Mean Corpuscular Volume 85.8 fl (80-100); Mean Platelet Volume 8.6 fl (7.4-10.4); Monocytes Absolute Auto 0.5 K/mm3 (0.1-0.6); Neutrophils Absolute Auto 4.8 K/mm3 (1.3-6.7); Neutrophils Percent Auto 56.5 % (45.5-73.1); Platelet Count Result 225 k/mm3 (150-375); Red Blood Count 5.62 M/mm3 (4.6-6.20); White Blood Count 8.5 K/mm3 (4.5-10.0)
[2025-04-11 23:57] LABS: Alanine Aminotransferase 68 U/L (6-50); Albumin Level 5.1 g/dL (3.5-5.1); Alkaline Phosphatase 80 U/L (38-126); Anion Gap 12 mmol/L (4-12); Aspartate Amino Transferase 54 U/L (17-59); Bilirubin,Total 0.6 mg/dL (0.2-1.3); Blood Urea Nitrogen 23 mg/dL (9-20); Calcium 9.4 mg/dL (8.4-10.2); Carbon Dioxide 24 mmol/L (22-30); Chloride 103 mmol/L (98-107); Estimated CRCL calculation 140 ml/min; Estimated Glomerular Filt Rate > 60; Glucose 101 mg/dL (65-110); Lipase 82 U/L (23-300); Potassium 3.9 mmol/L (3.4-5.0); Sodium 139 mmol/L (137-145)
[2025-04-12 00:08] LABS: Troponin I < 0.012 ng/mL (0.000-0.034)
[2025-04-12 00:18] LABS: Partial Thromboplastin Time 27.9 Seconds (22.3-36.8)
--- NOTE | 2025-04-12 01:33 | PC.NURSE ---
Patient approached triage desk stating that he was leaving due to wait times. Pt advised to be seen at nearest ED for any symptoms that warrant return. Pt ambulated to ED exit with steady gait and no signs for concern at this time.
--- OUTSIDE RECORDS SUMMARY | 2025-04-12 01:41 | XMS_ITS | Clinical Summary ---
Author Organization 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
--- OUTSIDE RECORDS SUMMARY | 2025-04-12 01:41 | XMS_ITS | Referral Summary ---
Author Organization [facility] Address [address] [place] [address] Care Team Providers Care Location Director Name Role Phone Nigel Hernandez MD Primary Care Provider Allergies Active Allergy Reactions Criticality Noted Date Comments Amoxicillin Rash Medium 08/01/2015 Penicillins Rash Medium Medications No known medications Active Problems Problem Noted Date Diagnosed Date Current tear of lateral cartilage or meniscus of knee 01/30/2019 Overview (01/30/2019): Added automatically from request for surgery [id number] Knee pain 10/06/2013 Social History Tobacco Use Types Packs/Day Years Used Date Smoking Tobacco: Never Smokeless Tobacco: Current Chew Alcohol Use Standard Drinks/Week Comments Not Currently 0 (1 standard drink = 0.6 oz pur e alcohol) Sex and Gender Information Value Date Recorded Sex Assigned at Not on file 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
--- OUTSIDE RECORDS SUMMARY | 2025-04-12 01:41 | XMS_ITS | Clinical Summary ---
Author Organization [facility] Address [address] [place] [address] Care Team Providers Care Commercial Artist Name Role Phone Nigel Hernandez MD Primary Care Provider [phone] Source Comments [facility],non-owned Affiliates and Associated Physician Practices is amultiple site organization consisting of ambulatory clinics and hospital sitesin [place], [place], [place] and [place]. This disclosure is being madepursuant to the Care Everywhere program and may not contain all information available regarding this patient. Last updated 18.[facility] Allergies Active Allergy Reactions Criticality Noted Date [...] lb 0.6 oz) 09/26/2015 8:54 A M ALUMINUM SHEET CUTTER Height 178.9 cm (5' 10.43 ) 09/26/2015 8:[address] Body Mass Index 29.48 09/26/2015 8:54 AM ALUMINUM SHEET CUTTER Plan of Treatment Health Maintenance Due Date [...] to complete this topic Insurance Care Teams Commercial Artist Relationship Specialty Start Date End Date Nigel Hernandez MD [address] [place] [address] [address] [place] [address] PCP - General Internal Medicine 07/31/15
--- OUTSIDE RECORDS SUMMARY | 2025-04-12 01:41 | XMS_ITS | Clinical Summary ---
Author Organization [facility] Address [address] Messer: Epic Prelude ADT TAMMIE MCADAMS [address] Care Team Providers Care Cork Insulation Setter Name Role Phone Unavailable Primary Care Provider Unavailabl e Medications azithromycin (Zithromax Z-Perry) 250 mg tablet TAKE 2 TABLETS (500 MG) BY ORAL ROUTE ONCE DAILY FOR 1 DAY THEN 1 TABLET (250 MG) BY ORAL ROUTE ONCE DAILY FOR 4 DAYS 6 Tablet 12/28/2022 12:56 PM LATH TIER 12/28/2022 Active benzonatate (TESSALON) 200 mg capsule Take 1 Capsule (200 mg) by mouth 3 times daily. 21 Capsule 12/02/2023 2:08 PM LATH TIER 12/02/2023 Active methylPREDNISol one (MEDROL DOSPACK) 4 [...] times daily. 21 Capsule 01/23/2025 5:06 PM LATH TIER 01/23/2025 Active azithromycin (Zithromax Z-Perry) 250 mg tablet TAKE 2 TABLETS BY MOUTH A SINGLE DOSE ON DAY 1, THEN TAKE 1 TABLET ONCE DAILY ON DAYS 2 THRU 5. 6 Tablet 01/23/2025 5:06 PM LATH TIER 01/23/2025 Active Social History Tobacco Use Types [...]
--- OUTSIDE RECORDS SUMMARY | 2025-04-12 01:41 | XMS_ITS | Clinical Summary ---
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 Gender Identity Not on file Sexual Orientation [...] 06/26/2014, 12/2012, 05/30/2012, Additional history exists Insurance [facility] Address: [facility] [address] [place] [address] [facility] Address: [address] [place] [address] [facility] Address: [address] [place] [address] Care Teams Helpdesk Analyst Relationship Specialty Start Date End Date Nigel Hernandez MD PCP - General Internal Medicine 01/27/19
--- OUTSIDE RECORDS SUMMARY | 2025-04-12 01:41 | XMS_ITS | CONTINUITY OF CARE DOCUMENT ---
Author Name musa vigil Address Unknown Organization [facility] Address [id number] [place] [address] [address] [place] [address] Phone [phone] Care Team Providers Care Programmer Analyst Consultant Name Role Phone En MENA, Anibal Unavailable LIZ MENA, NANCIE Unavailable LIZ MENA, NANCIE Unavailable PROBLEMS Condition Status Date Provider Notes Cardiology examination active Kanu Ahmedzai Palpitations active Kanu Ahmedzai Chest discomfort active Kanu Ahmedzai Snoring active Naomy Ventimiglia VICE PRESIDENT OF BUSINESS DEVELOPMENT ENCOUNTERS Date Type Provider Location Encounter Diag nosis - In-person encounter Office Visit Anibal Gatica MD [facility] Snoring - In-person encounter Office Visit Anibal Gatica MD [facility] Cardiology examinationPalpitationsChest discomfort VITAL SIGNS Date Observation Value Provider Body Mass Index (Ratio) 31.46 kg/m2 Barrington Gatica MD blood pressure, diastolic 70 mm[Hg] Am daniel Ventimiglia VICE PRESIDENT OF BUSINESS DEVELOPMENT blood pressure, systolic 132 mm[Hg] [place] nda Ventimiglia VICE PRESIDENT OF BUSINESS DEVELOPMENT pulse rate 68 /min Naomy Ventimig gege VICE PRESIDENT OF BUSINESS DEVELOPMENT oxygen saturation, oximetry 99 % Naomy Ventimiglia VICE PRESIDENT OF BUSINESS DEVELOPMENT respiratory rate E&M 16 /min Naomy Ventimiglia VICE PRESIDENT OF BUSINESS DEVELOPMENT height E&M 72 [in_i] Naomy Ventimig gege [facility] weight E&M 232 [lb_av] Naomy Ventimig gege [facility] Body Mass Index (Ratio) 31.05 kg/m2 Barrington [...] smoking, year quit 2024 Naomy Ve ntimiglia [facility] cigarette use yes Naomy Ventimi glia [facility] personal history of marijuana use no Naomy Ventimiglia [facility] drug use no Naomy Ventimig gege [facility] alcohol use, average drinks per day socia l Naomy Ventimiglia [facility] alcohol use yes Naomy Ventimig gege [facility] smoking status Former smoker Naomy Venti miglia [facility] INSURANCE PROVIDERS Payer name Policy type / Coverage type [place] red libertarian ID [employer] insurance [employer] [id number] [facility] [id number] Other [id number] ADVANCE DIRECTIVES Name Date DISCUSSED - NO DECISION MADE TREATMENT PLAN Date Name Performer Cardiology:no longer have chest pain e cho showed normal EF W ill monitor Naomy Ventimiglia [facility] Cardiology:with conc rickey for ULYSSES based upon symptoms and tele monitor W ill plan for IHS Naomy Ventimiglia [facility] Cardiology:Continues to have episodes, but not as often H e had echo that shows normal EF and no valvular abnormalities. H is tele montior showed a NSR with averge HR of [address] sleep, increased fuids and exercise W ill monitor Naomy Ventimiglia [facility] Cardiology: O rders: M onitor - Telemetry (Mobile Cardiac) ([id number]) C omplete Echo ([id number]) Anibal Gatica MD Date Name Sleep Study TSH, free T4, total T3 Microalb/Creatinine Urine, Random Ca+PTH Intact CBC (INCLUDES DIFF/P LT) LIPID PANEL COMPREHENSIVE METABO LIC PANEL, W/EGFR Complete Echo Monitor - Telemetry (Mobile Cardiac) HISTORY OF PROCEDURES Procedure Date Procedure Name Provider Procedure Notes S tatus EKG Anibal Gatica MD completed
== END 2025-04-12 01:33 | disposition left against medical advice (07) ==
PROVIDERS: Emergency Provider Emergency Medicine; PCP Internal Medicine
DX: R07.89 Other chest pain (principal)
CPT/HCPCS: 36415; 71046; 80053; 83690; 84484; 85025; 85610; 85730; 93005; 99199

== ENCOUNTER 2025-06-01 18:58 | Emergency (ER) | payer OTHER, SELFPAY ==
[2025-06-01] VITALS (12 sets, daily range): BP systolic 108–141; BP diastolic 54–83; PULSE 45–74; RESP 15–20; TEMP 36.4; O2SAT 97–100
--- NOTE | ~2025-06-01 | XR_ITS ---
XR chest 2V Ordering provider: Elaina Blum PA-C History: 24 years Male with . CP . Comparison: April 11, 2025 FINDINGS: MEDIASTINUM: The cardiac silhouette is not enlarged. LUNGS: No infiltrates, effusions or pneumothorax. OTHER: No free air under the diaphragm. IMPRESSION: No acute cardiopulmonary pathology. Reviewed, dictated and finalized at location A.
--- OUTSIDE RECORDS SUMMARY | 2025-06-01 19:00 | XMS_ITS | Clinical Summary ---
Author Organization [facility] Address [address] Messer: Epic Prelude ADT TAMMIE MCADAMS [address] Care Team Providers Care Biomedical Specialist Name Role Phone Unavailable Primary Care Provider Unavailabl e Medications azithromycin (Zithromax Z-Perry) 250 mg tablet TAKE 2 TABLETS (500 MG) BY ORAL ROUTE ONCE DAILY FOR 1 DAY THEN 1 TABLET (250 MG) BY ORAL ROUTE ONCE DAILY FOR 4 DAYS 6 Tablet 12/28/2022 12:56 PM SHOULDER PUNCHER 12/28/2022 Active benzonatate (TESSALON) 200 mg capsule Take 1 Capsule (200 mg) by mouth 3 times daily. 21 Capsule 12/02/2023 2:08 PM SHOULDER PUNCHER 12/02/2023 Active methylPREDNISol one (MEDROL DOSPACK) 4 [...] times daily. 21 Capsule 01/23/2025 5:06 PM SHOULDER PUNCHER 01/23/2025 Active azithromycin (Zithromax Z-Perry) 250 mg tablet TAKE 2 TABLETS BY MOUTH A SINGLE DOSE ON DAY 1, THEN TAKE 1 TABLET ONCE DAILY ON DAYS 2 THRU 5. 6 Tablet 01/23/2025 5:06 PM SHOULDER PUNCHER 01/23/2025 Active Social History Tobacco Use Types [...] 19+ 3-dose series) 07/24 INFLUENZA VACCINE (#1) 2025 Insurance [employer]
--- OUTSIDE RECORDS SUMMARY | 2025-06-01 19:00 | XMS_ITS | Data Portability ---
Author Organization [place] - [employer], Main Office Address [address] [place] [address] Assessment No assessment recorded. Plan of Treatment Reminders Order Date Submit Date Provider Last Modified By Organization Details Last Modified Time Details Appointments None recorded. Lab lipid panel, serum 2023 024 [facility], [address] [place], [address], 4 17:03:03 CRP, high sensitivity , serum or plasma 2023 024 [facility], [address] [place], [address], 4 09:58:11 Referral None recorded. Procedures None recorded. Surgeries None recorded. Imaging None recorded. Medication Orders Zithromax Z-Perry 250 mg tablet 2024 025 [email or web address] [facility], [address], [place], [place], [id number], 5 16:49:11 benzonatate 200 mg capsule [email or web address] [place] [address] [facility], [address], [place], [place], [id number], 5 16:49:13 Bactrim DS 800 mg-160 mg tablet [email or web address] [place] [address] ez Hannah, [address], [place], [place], [id number], 17:09:11 Patient TargetsNo targets recorded. Patient Instructions Encounter Date Encounter Id Patient Instructions Last Modified By Organization Details Last Modified Time 02/25/2024 [id number] risk assessment* [email or web address] Not availabl e 02/25/2024 17:01:47 INFLUENZA VACCIN E Next vaccination to be given fall __2023__ TD/TDAP Patient will get at local pharmacy/health department COLORECTAL SCREENING No screening necessary until age 45 DEPRESSION SCREENING Negative BMI Overweight try to lose 10% of your body weight NUTRITION Continue healthy eating & exercise PHYSICAL ACTIVITY Need more activity VISION Your next exam in: gets as needed ALCOHOL USE Occasional/Social Use TOBACCO USE non smoker SEXUALLY ACTIVE GLUCOSE SCREENING Not needed LIPID SCREENING Not needed [email or web address] Not available 02/25/2024 16:33:44 Wellness evaluation risk [...] with voice recognition software. Occasional wrong-word or faknl-l-vnnt substitutions may have occurred due to the inherent limitations of voice recognition software. Read the chart carefully and recognize, using context, where substitutions have occurred. [email or web address] Not available 02/25/2024 17:01:05 04/20/2024 [id number] Epidermoid cyst of the neck will give a trial of some antibiotics in the form of Bactrim ds one b.i.d. For seven days. Instructed let us know if there is no improvement may need to consider further evaluation. Keep Appointment: Kristina 03 01 2025 04:00 PM Hannah Portions of the record may have been created with voice recognition software. Occasional wrong-word or bpsvg-e-yqru substitutions may have occurred due to the inherent limitations of voice recognition software. Read the chart carefully and recognize, using context, where substitutions have occurred. Not available 04/20/2024 16:50:12 01/23/2025 [id number] Senna bronchitis will give a trial of Z-Perry some benzoate. If no improvement will need to consider further diagnostic evaluation. Keep Appointment: [facility] 03 01 2025 04:00 PM Hannah Portions of record are template driven. When necessary additional context will be provided. Additionally some portions have been created with voice recognition software. Occasional wrong-word or fqarc-o-cumh substitutions may have occurred due to the inherent limitations of voice recognition software. Read the chart carefully and recognize, using context, where substitutions may have occurred. Created: Nigel Hernandez M.D. 01.23.2025 04:26 PM [email or web address] Not available 01/23/2025 17:26:14 04/24/2025 [id number] While patient evaluation risk assessment. Clinically stable. History of asthma as well as obesity class one. Had blood work done over a year ago which looked adequate. See no reason that the patient's age and without any other symptoms to perform any additional blood work at this time Follow Up: 1 Year Approximate Date: 04/24/2026 Portions of record are template driven. When necessary additional context will be provided. Additionally some portions have been created with voice recognition software. Occasional wrong-word or szgqt-q-lriw substitutions may have occurred due to the inherent limitations of voice recognition software. Read the chart carefully and recognize, using context, where substitutions may have occurred. Created: Nigel Hernandez M.D. 04.24.2025 04:02 PM [email or web address] Not available 04/24/2025 17:02:36 Reason for Referral None Reported. Results Created Date Observation Date Name Description Value Unit Range Abnormal Flag Note LastModifiedBy Organization Detail LastModifiedTime 10/26/20 22 10/26/2022 COVID /FLU/ RSV PCR PANEL sars-cov-2 RNA(covid19) ,RT-PCR negati ve Not Available [facility] (Lab) [address] [place], [address], 10/26/2022 16:00:38 10/26/20 22 10/26/2022 COVID /FLU/ RSV PCR PANEL influenza A RNA, RT-PCR negati ve Not Available [facility] (Lab) [address] [place], [address], 10/26/2022 16:00:38 10/26/20 22 10/26/2022 COVID /FLU/ RSV PCR PANEL influenza B RNA, RT-PCR negati ve Not Available [facility] (Lab) [address] [place], [address], 10/26/2022 16:00:38 10/26/20 22 10/26/2022 COVID /FLU/ RSV PCR PANEL RSV/resp.syn ctial virus,RT-PCR negati ve Not Available [facility] (Lab) [address] [place], [address], 10/26/2022 16:00:38 02/27/20 25 02/27/2025 TSH+F REE T4 TSH 2.09 mIU/L 0.40-4 .50 normal Not Available [address], [address], 02/27/2025 04:13:36 02/27/20 25 02/27/2025 TSH+F REE T4 T4, free 1.1 NG/dL 0.8-1. [address] to have a ZanAqua celeste copy faxed has been salma gonzalez ed. Queue d to: [phone] Not Available [address] [place], [address], 02/27/2025 04:13:36 04/18/20 25 04/19/2025 LIPID PANEL , STAND JUDITH cholesterol, total 190 mg/dL <200 normal Not Available [facility] [address] [place], [address], 04/19/2025 04:05:07 04/18/20 25 04/19/2025 LIPID PANEL , STAND JUDITH HDL cholesterol 53 mg/dL > or = 40 normal Not Available [employer] [address] [place], [address], 04/19/2025 04:05:07 04/18/20 25 04/19/2025 LIPID PANEL , STAND JUDITH triglyceride s 51 mg/dL <150 normal Not Available [address], [address], 04/19/2025 04:05:07 04/18/20 25 04/19/2025 LIPID PANEL , STAND JUDITH LDL-choleste rol 123 mg/dL _(keshawn c) high Refer ence range : <100 Jany able range <100 mg/dL for prima ry preve ntion ; <70 mg/dL for patie nts with CHD or diabe tic patie nts with > or = 2 CHD risk facto rs. LDL-C is now calcu lated using the Catherine n-Hop kins calcu miguel n, which is a valid ated novel metho d provi ding bianka r accur acy than the Fried gerry equat ion in the estim ation of LDL-C . Catherine st SS et al. FAIZA. 2013; 310(1 9): 2061- 2068 (http ://ed ucati on.Qu [employer]. AVIS/f aq/FA Q164) Not Available [address] [address] [place], [address], 04/19/2025 04:05:07 04/18/2004/19/2025 LIPID PANEL , STAND JUDITH chol/HDLC ratio 3.6 (calc ) <5.0 normal Not Available [facility] [address] [address] [place], [address], 04/19/2025 04:05:07 04/18/2004/19/2025 LIPID PANEL , STAND JUDITH non HDL cholesterol 137 mg/dL _(keshawn c) <130 high For patie nts with diabe niecy plus 1 major ASCVD risk facto r, treat ing to a non-H DL-C goal of <100 mg/dL (LDL- C of <70 mg/dL ) is consi dered a thera peuti c optio n. Not Available [facility] [address] [place] [address], [address], 04/19/2025 04:05:07 04/18/20 25 04/19/2025 COMPR EHENS TOBY METAB OLIC PANEL glucose 89 mg/dL 65-99 normal Fasti ng refer ence inter christine Not Available [address], [address], 04/19/2025 04:05:09 04/18/20 25 04/19/2025 COMPR EHENS TOBY METAB OLIC PANEL urea nitrogen (BUN) 17 mg/dL 7-25 normal Not Available [address], [address], 04/19/2025 04:05:09 04/18/20 25 04/19/2025 COMPR EHENS TOBY METAB OLIC PANEL creatinine 0.91 mg/dL 0.60-1 .24 normal Not Available [address], [address], 04/19/2025 04:05:09 04/18/20 25 04/19/2025 COMPR EHENS TOBY METAB OLIC PANEL eGFR 120 mL/mi n/1.7 3m2 > or = 60 normal Not Available [address], [address], 04/19/2025 04:05:09 04/18/20 25 04/19/2025 COMPR EHENS TOBY METAB OLIC PANEL BUN/creatini ne ratio SEE NOTE: (calc ) 6-22 Not Repor nichole: BUN and Creat inine are withi n refer ence range . Not Available [address], [address], 04/19/2025 04:05:09 04/18/20 25 04/19/2025 COMPR EHENS TOBY METAB OLIC PANEL sodium 137 mmol/ L 135-14 6 normal Not Available [address], [address], 04/19/2025 04:05:09 04/18/20 25 04/19/2025 COMPR EHENS TOBY METAB OLIC PANEL potassium 4.6 mmol/ L 3.5-5. 3 normal Not Available [address], [address], 04/19/2025 04:05:09 04/18/20 25 04/19/2025 COMPR EHENS TOBY METAB OLIC PANEL chloride 99 mmol/ L 98-110 normal Not Available [address], [address], 04/19/2025 04:05:09 04/18/20 25 04/19/2025 COMPR EHENS TOBY METAB OLIC PANEL carbon dioxide 30 mmol/ L 20-32 normal Not Available [address], [address], 04/19/2025 04:05:09 04/18/20 25 04/19/2025 COMPR EHENS TOBY METAB OLIC PANEL calcium 10.3 mg/dL 8.6-10 .3 normal Not Available [address], [address], 04/19/2025 04:05:09 04/18/20 25 04/19/2025 COMPR EHENS TOBY METAB OLIC PANEL protein, total 7.4 g/dL 6.1-8. 1 normal Not Available [address], [address], 04/19/2025 04:05:09 04/18/20 25 04/19/2025 COMPR EHENS TOBY METAB OLIC PANEL albumin 5.2 g/dL 3.6-5. 1 high Not Available [address], [address], 04/19/2025 04:05:09 04/18/20 25 04/19/2025 COMPR EHENS TOBY METAB OLIC PANEL globulin 2.2 g/dL_ (calc ) 1.9-3. 7 normal Not Available [address], [address], 04/19/2025 04:05:09 04/18/2004/19/2025 COMPR EHENS TOBY METAB OLIC PANEL albumin/glob ulin ratio 2.4 (calc ) 1.0-2. 5 normal Not Available [address], [address], 04/19/2025 04:05:09 04/18/2004/19/2025 COMPR EHENS TOBY METAB OLIC PANEL bilirubin, total 0.6 mg/dL 0.2-1. 2 normal Not Available [address], [address], 04/19/2025 04:05:09 04/18/2004/19/2025 COMPR EHENS TOBY METAB OLIC PANEL alkaline phosphatase 73 U/L 36-130 normal Not Available [address], [address], 04/19/2025 04:05:09 04/18/2004/19/2025 COMPR EHENS TOBY METAB OLIC PANEL AST 21 U/L 10-40 normal Not Available [address], [address], 04/19/2025 04:05:09 04/18/20 25 04/19/2025 COMPR EHENS TOBY METAB OLIC PANEL ALT 40 U/L 9-46 normal Not Available [address], [address], 04/19/2025 04:05:09 04/18/20 25 04/19/2025 CBC (INCL UDES DIFF/ PLT) white blood cell count 5.7 thous and/u L 3.8-10 .8 normal Not Available [address], [address], 04/19/2025 04:05:10 04/18/2004/19/2025 CBC (INCL UDES DIFF/ PLT) red blood cell count 5.45 abe on/uL 4.20-5 .80 normal Not Available [address], [address], 04/19/2025 04:05:10 04/18/2004/19/2025 CBC (INCL UDES DIFF/ PLT) hemoglobin 16.6 g/dL 13.2-1 7.1 normal Not Available [address], [address], 04/19/2025 04:05:10 04/18/2004/19/2025 CBC (INCL UDES DIFF/ PLT) hematocrit 48.2 % 38.5-5 0.0 normal Not Available [address], [address], 04/19/2025 04:05:10 04/18/2004/19/2025 CBC (INCL UDES DIFF/ PLT) MCV 88.4 fL 80.0-1 00.0 normal Not Available [address], [address], 04/19/2025 04:05:10 04/18/2004/19/2025 CBC (INCL UDES DIFF/ PLT) MCH 30.5 pg 27.0-3 3.0 normal Not Available [address], [address], 04/19/2025 04:05:10 04/18/2004/19/2025 CBC (INCL UDES DIFF/ PLT) MCHC 34.4 g/dL 32.0-3 6.0 normal For adult s, a sligh t decre ase in the calcu lated MCHC value (in the range of 30 to 32 g/dL) is most likel y not clini rasheed signi bernadette t; dipika er, it shoul d be inter prete d with cauti on in [facility] n with other red cell gene eters and the patie nt's clini keshawn condi tion. Not Available [facility] [address], [address], 04/19/2025 04:05:10 04/18/20 25 04/19/2025 CBC (INCL UDES DIFF/ PLT) RDW 12.5 % 11.0-1 5.0 normal Not Available [address], [address], 04/19/2025 04:05:10 04/18/20 25 04/19/2025 CBC (INCL UDES DIFF/ PLT) platelet count 229 thous and/u L 140-40 0 normal Not Available [address], [address], 04/19/2025 04:05:10 04/18/20 25 04/19/2025 CBC (INCL UDES DIFF/ PLT) MPV 9.0 fL 7.5-12 .5 normal Not Available [address], [address], 04/19/2025 04:05:10 04/18/20 25 04/19/2025 CBC (INCL UDES DIFF/ PLT) absolute neutrophils 3466 cells /uL 1500-7 800 normal Not Available [address], [address], 04/19/2025 04:05:10 04/18/20 25 04/19/2025 CBC (INCL UDES DIFF/ PLT) absolute lymphocytes 1801 cells /uL 850-39 00 normal Not Available [address], [address], 04/19/2025 04:05:10 04/18/20 25 04/19/2025 CBC (INCL UDES DIFF/ PLT) absolute monocytes 331 cells /uL 200-95 0 normal Not Available [facility] [address], [address], 04/19/2025 04:05:10 04/18/20 25 04/19/2025 CBC (INCL UDES DIFF/ PLT) absolute eosinophils 63 cells /uL 15-500 normal Not Available [facility] [address], [address], 04/19/2025 04:05:10 04/18/2004/19/2025 CBC (INCL UDES DIFF/ PLT) absolute basophils 40 cells /uL 0-200 normal Not Available [facility] [address], [address], 04/19/2025 04:05:10 04/18/2004/19/2025 CBC (INCL UDES DIFF/ PLT) neutrophils 60.8 % normal Not Available [facility] [address], [address], 04/19/2025 04:05:10 04/18/2004/19/2025 CBC (INCL UDES DIFF/ PLT) lymphocytes 31.6 % normal Not Available [facility] [address], [address], 04/19/2025 04:05:10 04/18/2004/19/2025 CBC (INCL UDES DIFF/ PLT) monocytes 5.8 % normal Not Available [facility] [address], [address], 04/19/2025 04:05:10 04/18/20 25 04/19/2025 CBC (INCL UDES DIFF/ PLT) eosinophils 1.1 % normal Not Available [facility] [address], [address], 04/19/2025 04:05:10 04/18/20 25 04/19/2025 CBC (INCL UDES DIFF/ PLT) basophils 0.7 % normal Not Available [facility] [address], [address], 04/19/2025 04:05:10 04/18/20 25 04/19/2025 HEMOG LOBIN A1C hemoglobin A1C 5.0 %_of_ total _HGB <5.7 normal For the purpo se of royce ivan for the prese nce of diabe niecy: <5.7% Consi stent with the absen ce of diabe niecy 5.7-6 .4% Consi stent with incre ased risk for diabe niecy (pred iabet es) > or =6.5% Consi stent with diabe niecy This assay resul t is consi stent with a decre ased risk of diabe niecy. Curre ntly, no conse nsus exist s hector medina use of hemog lobin A1c for diagn osis of diabe niecy in child abiel. Accor ding to Ameri can Diabe niecy Assoc iatio n (ADA) guide lines , hemog lobin A1c <7.0% repre sents optim al contr ol in non-p regna nt diabe tic patie nts. Diffe rent metri cs may apply to speci fic patie nt popul ation s. Stand ards of Medic al Care in Diabe niecy(A DA). Not Available [facility] [address], [place], [address], 04/19/2025 04:05:12 02/20/20 25 02/19/2025 XR, chest No observ ation record ed. [place] [address], [place], [address], 02/20/2025 08:56:29 02/22/20 25 02/20/2025 , echo ardio gram No observ ation record ed. [address] [facility] [address], [place], [address], 02/21/2025 09:07:27 04/09/20 25 04/04/2025 sleep study , diagn ostic (PROC ) No observ ation record ed. [address] [facility] [address] [place], [address], 04/09/2025 09:19:53 04/12/20 25 04/11/2025 XR, chest No observ ation record ed. [email or web address] [facility] [address], [place], [address], 04/12/2025 08:13:07 Result Notes None recorded. Problems Name Problem SNOMED Code Status Onset Date Resolution Date Notes Provider Name and Address Organization Details Recorded Time Constipati on 43928244 Active 2021 Not Available [facility] 3 17:00:29 Acute sinusitis 85011904 Active 2021 Not Available [facility] 3 17:00:29 Asthma 892424167 Active Not Available [facility] 3 17:00:29 Current tear of medial cartilage AND/OR meniscus of knee Active Not Available [facility] 3 17:00:29 Current tear of lateral cartilage AND/OR meniscus of knee Active Not Available [facility] 3 17:00:29 Knee pain Active Not Available [facility] 3 17:00:29 Patellar tendonitis 98135450 Active Not Available [facility] 3 17:00:29 Hematoma 973334357 Active 2016 Not Available [facility] 3 17:00:29 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 Not Available [facility] 3 17:00:29 Allergic rhinitis 30126772 Active 2023 Nigel Hernandez MD [address], [facility] [address], [place], [address] , [employer] [facility] [employer] 4 16:56:22 Epidermoid cyst of skin of neck 855096885 Active 2023 Nigel Hernandez MD [address], [facility] [address], [place], [address] , [facility] [employer] 4 16:49:34 Tachycardi a 7132687 Active 2024 Natalia Mcdowell CMA null, [facility] [employer] 5 11:16:12 Thyroid function tests abnormal 626485013 Active 2024 Natalia Mcdowell CMA null, [place] [facility] 5 16:48:14 Dizziness 013452330 Active 2024 Natalia Mcdowell CORONER TECHNICIAN null, [place] [facility] 5 17:18:51 Hyperglyce isabela 53133607 Active 2024 Natalia JeremiasMIMI null, [place] [facility] 5 14:10:52 Fatigue 00792191 Active 2024 Natalia Mcdowell CMA null, [place] [facility] 5 14:11:22 Obese class I 0847497271432 07 Active 2024 Nigel Hernandez MD [address] [place] [address], [address] , [facility] 17:00:21 Problem Notes None recorded. Medical Equipment None Reported. Allergies Allergen ID Allergen Name Allergen Category Reaction Reaction Severity Criticality Documentation Date Start Date Code Code System Note Provider Name and Address Organization Details Recorded Time 96[address] amoxicill in medicatio n rash Not available Not available 01/20/2023 723 RxNorm Not Available [facility] 3 17:01:53 Medications Name Sig Start Date [...] 3 times a day by oral route. 04/24 completed Not Available Not Available Not Available Zithromax Z-Perry 250 mg tablet Take 2 TABLET EVERY DAY by oral route for 1 day then one daily 04/24 completed Not Available Not Available Not Available clindamycin HCl 150 mg capsule Take 1 [...] Available Not Available Vitals Date Recorded Body height Body mass index (BMI) Body weight Heart rate Body temperature Oxygen saturation Oxygen saturation in Arterial blood by Pulse oximetry Systolic And Diastolic Provider Name and Address Organization Details Last Updated DateTime 5 179.07 cm 31.7 kg/m2 959387. 69 g 79 /min 97 [degF] 97 % 97 % 120/78 mm[Hg] [employer] 5 17:09:01 Date Recorded Body height Body mass index (BMI) Body weight Heart rate Body temperature Oxygen saturation Oxygen saturation in Arterial blood by Pulse oximetry Systolic And Diastolic Provider Name and Address Organization Details Last Updated DateTime 4 179.07 cm 31.5 kg/m2 742363. 1 g 73 /min 97 [degF] 97 % 97 % 120/68 mm[Hg] [employer] 4 16:28:29 Date Recorded Body height Body mass index (BMI) Body weight Heart rate Body temperature Oxygen saturation Oxygen saturation in Arterial blood by Pulse oximetry Systolic And Diastolic Provider Name and Address Organization Details Last Updated DateTime 4 179.07 cm 30.3 kg/m2 68582.7 7 g 80 /min 97.6 [degF] 98 % 98 % 118/72 mm[Hg] Maylin MickSEAN [place] [employer] [facility] [employer] 4 16:40:23 Date Recorded Body height Body mass index (BMI) Body weight Heart rate Body temperature Oxygen saturation Oxygen saturation in Arterial blood by Pulse oximetry Systolic And Diastolic Provider Name and Address Organization Details Last Updated DateTime 5 179.07 cm 33.9 kg/m2 323007. 17 g 79 /min 97 [degF] 97 % 97 % 120/62 mm[Hg] Keke Santiago Oscar 5 16:49:00 Date Recorded Oxygen saturation Oxygen saturation in Arterial blood by Pulse oximetry Heart rate Body temperature Body weight Systolic And Diastolic Provider Name and Address Organization Details Last Updated DateTime 2 98 % 98 % 76 /min 97.6 [degF] 37269.7 3 g 134/80 mm[Hg] Not Available [facility] 3 16:59:58 Social History None recorded. Functional Status None recorded. Mental Status None recorded. Family History Nothing Reported Notes:Mother living 51 in [facility] Father living 51 in [...] INSOMNIA N HIGH CHOLESTEROL / HYPERLIPIDEMIA N HYPERTHYROIDISM N EYE PROBLEMS N NEUROLOGICAL PROBLEMS N EDEMA N CHRONIC PAIN SYNDROME N HYPOTHYROIDISM N CONSTIPATION N CAROTID BLOCKAGE N BACK / NECK PROBLEMS N HAVE YOU BEEN HOSPITALIZED OR SEEN IN [facility] IN THE PAST YEAR ? N ATHEROSCLEROSIS N BREAST PROBLEMS N DIALYSIS N ECZEMA N OSTEOPOROSIS N ARTHRITIS N NO SIGNIFICANT PAST MEDICAL HISTORY N APPENDICITIS N DIABETES, TYPE N BAD TEETH N ENT N HEARTBURN / REFLUX N AUTISM SPECTRUM DISORDER (ASD) N HEPATITIS / LIVER DISEASE N GOUT N SLEEP DISORDER N ALZHEIMER'S DISEASE N Brain Problems N HERPES N DEMENTIA N SEIZURES/EPILEPSY N HEADACHES/MIGRAINES N VASCULAR DISEASE N PACEMAKER N Blood Disorder N DIZZINESS N KIDNEY DISEASE N HEART DISEASE/HEART PROBLEMS N MULTIPLE SCLEROSIS N CARDIAC ARRHYTHMIA N CANCER: SPECIFY N Gall Stones N ATRIAL FIBRILLATION N PULMONARY EMBOLISM N AUTOIMMUNE DISEASE N Immunizations Vaccine Type Date Status Note Provider Nam e and Address Organization Details Recorded Time meningococcal MCV4P 7 completed Not Available [facility] 01/20/2023 17:01:47 Hib (HbOC) 0 completed Not Available [facility] 01/20/2023 17:01:47 OPV 9 completed Not Available [facility] 01/20/2023 17:01:47 DTaP 9 completed Not Available [facility] 01/20/2023 17:01:47 HPV, quadrivalent 3 completed Not Available [facility] 01/20/2023 17:01:47 meningococcal B, unspecified 1 completed Not Available [facility] 01/20/2023 17:01:48 DTaP 5 completed Not Available [facility] 01/20/2023 17:01:48 MMR 4 completed Not Available [facility] 01/20/2023 17:01:48 Hep A, ped/adol, 2 dose 2 completed Not Available [facility] 01/20/2023 17:01:48 IPV 1 completed Not Available [facility] 01/20/2023 17:01:48 Hep A, ped/adol, 2 dose 1 completed Not Available [facility] 01/20/2023 17:01:48 IPV 1 completed Not Available [facility] 01/20/2023 17:01:49 MMR 1 completed Not Available [facility] 01/20/2023 17:01:49 DTaP 0 completed Not Available [facility] 01/20/2023 17:01:49 IPV 0 completed Not Available [facility] 01/20/2023 17:01:49 Hep B, adolescent or pediatric 0 completed Not Available [facility] 01/20/2023 17:01:49 HPV, quadrivalent 2 completed Not Available [facility] 01/20/2023 17:01:49 HPV, quadrivalent 1 completed Not Available [facility] 01/20/2023 17:01:49 Tdap 1 completed Not Available [facility] 01/20/2023 17:01:49 DTaP 1 completed Not Available [facility] 01/20/2023 17:01:49 Hib, unspecified formulation 1 completed Not Available [facility] 01/20/2023 17:01:50 varicella 0 completed Not Available [facility] 01/20/2023 17:01:50 DTaP 0 completed Not Available [facility] 01/20/2023 17:01:50 Hep B, adolescent or pediatric 0 completed Not Available [facility] 01/20/2023 17:01:50 Hib, unspecified formulation 0 completed Not Available [facility] 01/20/2023 17:01:50 Hib-Hep B 0 completed Not Available [facility] 01/20/2023 17:01:50 Past Encounters Encounter ID Performer Location Encounter Start Date Encounter Closed Date Diagnosis/Indication Diagnosis SNOMED-CT Code Diagnosis ICD10 Code Diagnosis Note [id number] MD MARCELLA [facility] [place] [address] [place] [address] 02/28/2021 00:00:00 02/28/2021 16:46:24 [id number] MD MARCELLA [facility] [place] [address] [address] 08/04/2022 00:00:00 08/04/2022 11:25:30 [id number] Nigel Hernandez MD [facility] [address] [place] [address] [place] [address] 02/25/2024 16:22:06 02/25/2024 17:05:48 Adult health examination 838134264 Z00.00 Depression screening 171 437041 Z13.31 Allergic rhinitis 700454 04 J30.9 Screening for cardiovascular system disease 463618896 Z13.6 [id number] Nigel Hernandez MD [facility] [place] [facility] [address] [place] [address] [place] [address] 04/20/2024 16:32:43 04/20/2024 16:52:15 Epidermoid cyst of skin of neck 244155206 L72.0 [id number] Nigel Hernandez MD [facility] Internal Med [facility] [address] [address] 01/23/2025 16:55:48 01/23/2025 17:27:37 Acute bronchitis 19925055 J20.9 J20.0 J20.1 J20.2 J20.3 J20.4 J20.5 J20.6 J20.7 J20.8 [id number] Nigel Hernandez MD [facility] Internal Med [facility] [address] [address] 04/24/2025 16:32:59 04/24/2025 17:06:46 Adult health examination [id number] Z00.00 Asthma 016838919 J45.90 9 Obese class I [id number] 66009 E66.811 Health Concerns Section Related Observation LastModified by Organization Detai ls LastModified Time None Recorded Concern Status LastModified by Organization Details LastModified Time None Recorded Advance Directives Directive None Recorded Payers Insurance Date Sequence Insurance Name Policy Number Policy Muniz Covered Member ID Muinz Member ID Guarantor Name 05/02/2025 1 [facility] [id number] Abbie Tran [id number] Dereck Tran 04/24/2025 2 [facility] [employer] [address] Dereck Tran [id number] Dereck Tran 05/02/2025 1 EDITH [id number] Dereck Tran [id number] Dereck Tran 04/24/2025 3 EDITH Tran [id number] Dereck Tran Notes Date Note Type Note Provider Name [...] healthOne sister living and in good health. Nigel Hernandez MD [address], [facility] [address], [place], [address], [employer] 02/25/2024 17:01:50 04/20/2024 text/html Patient Name: Rose [...] associated systemic symptomatology. No other accompanying lymphadenopathy.: Nigel Hernandez MD [address], [facility] [address], [place], [address], Oscar 04/20/2024 16:51:17 01/23/2025 text/html Patient Name: Rose [...] [facility] sister living and in good health. Nigel Hernandez MD [address] [place] [address], [address], [place] [facility] [employer] 01/23/2025 17:26:24 04/24/2025 text/html Patient Name: Rose Marie Weeks Of Service: Wednesday ( 04.24.2025 ): 2000 Age: 24 There has been approximately a 16 lb weight gain since 01/23/2025. This represents approximately a 7.1% change in weight. Weight change attributable to lifestyle changes. Vital Signs:Blood Pressure: Sitting Rt. Arm 120/62Pulse: Sitting 79 /min and RegularRespiratory Rate: 16Height 70.5 in or 1.8 mWeight 240 lb or 108.9 kgBMI 33.9Temperature: 97 F or 36.1 CPulse Oximetry: 97 [...] diarrhea or constitutional symptoms.PSA NAColonoscopy or Cologuard: NAImmunizations Up To Date or refuses to takeNo Significant Change In Family HxFall Risk normalHearing normalVisual normalReviewed Smoking and Drug HistoryReviewed Immunization HistoryInstructed on importance of weight on diabetes, heart and other diseases aggravated by obesity.Instructed on importance of weight on diabetes, heart and other diseases aggravated by obesity. #1. Hx of asthma. Daily medications: none. Uses bronchodilators very infrequently. Night time exacerbations: less than 2 times monthly There has been no cough, congestion, or sputum production. No changes in exercise tolerance. Denies any fever or chills. Tolerating the medications without problems. The current status could be classified as Intermittent asthma. Using nebulizer Treatments: No. #2. Hx of obesity. Currently Class 1 Obesity BMI 30-34.99. Has tried numerous dietary support and supplements with no benefit. Instructed on the health consequences of the obese status particularly cancer - diabetes and heart disease. Discussed other modalities of weight loss no . Potential candidate for bariatric surgery: Yes but does no wish to pursue. Wishes to be evaluated by Dietary: No and was offered to be evaluated and instructed by tech ed teacher on weight loss diet. Wellness Evaluation _ PHQ-2 Score Last Two Weeks Last Two Weeks: 0: Not at all 1: Several Days 2: More than half 3: Almost Every day #1. Little interest or pleasure in doing things: Not At All :Score 0#2. Feeling down, depressed, or hopeless: Not At All :Score 0Score 0FAST Stage: 1 No functional decline Basic ADLS Ambulation Normal YesEating YesBed Transfer YesWalker NoCane NoFalls NoMultiple Falls NoBathing and Showering YesDressing YesFeeding YesFunctional Mobility YesPersonal Hygiene YesToilet Hygiene YesHome Safety Yes Instrumental ADLS House Work YesTaking Medications YesShopping YesTelephone YesUsing Technology YesTransportation YesPreparing Meals Yes Additional Topics Advanced Directives Not DiscussedLiving Will Not Discussed Social and Physical Activities Drinking History: NoneExercise 20 Minutes per Week: Yes, most of the timeDifficulty Driving Car: NoOther Problems: None,Falling,Orthostati c,Trouble Eating,Teeth Denture Problems,Problems using Telephone,Tiredness or fatigue Smoking History Does not smokeCannabis History Does Not UseNo Living Will on File! _ Social HistoryDoes not smokeDoes not drinkNo illegal drug usageNot currently sexually active Family HistoryMother living 52 in good health hip surgeryFather living 52 in good healthOne sister living and in good health. Nigel Hernandez MD [address] [facility], [facility] [address], [place], [address], [place] [facility] 04/24/2025 17:02:50
--- OUTSIDE RECORDS SUMMARY | 2025-06-01 19:00 | XMS_ITS | Referral Summary ---
Author Organization [facility] Address [address] [place] [address] Care Team Providers Care Porcelain Enameling Supervisor Name Role Phone Nigel Hernandez MD Primary Care Provider Allergies Active Allergy Reactions Criticality Noted Date Comments Amoxicillin Rash Medium 08/01/2015 Penicillins Rash Medium Medications No known medications Active Problems Problem Noted Date Diagnosed Date Current tear of lateral cartilage or meniscus of knee 01/30/2019 Overview (01/30/2019): Added automatically from request for surgery [id number] Knee pain 10/06/2013 Social History Tobacco Use Types Packs/Day Years Used Date Smoking Tobacco: Never Smokeless Tobacco: Current Chew Alcohol Use Standard Drinks/Week Comments Not Currently 0 (1 standard drink = 0.6 oz pur e alcohol) Sex and Gender Information Value Date Recorded Sex Assigned at Not on file 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
--- OUTSIDE RECORDS SUMMARY | 2025-06-01 19:00 | XMS_ITS | Clinical Summary ---
Author Organization [facility] Address [address] [place] [address] Care Team Providers Care Tub Mender Name Role Phone Nigel Hernandez MD Primary Care Provider Allergies Active Allergy Reactions Criticality Noted Date Comments Amoxicillin Rash Medium 08/01/2015 Penicillins Rash Medium Medications No known medications Active Problems Problem Noted Date Diagnosed Date Current tear of lateral cartilage or meniscus of knee 01/30/2019 Overview (01/30/2019): Added automatically from request for surgery [id number] Knee pain 10/06/2013 Surgical History Surgery Date [...] on file Legal Sex Male 9:43 AM MINI SHIFTER Gender Identity Not on file Sexual Orientation [...] 01/29/2001, Additional history exists Influenza Vaccine (#1) 2025 Hepatitis B Screening Completed 03/23/2000 , 01/13/2000, 01/13/2000, Additional history exists HPV Vaccines Completed 06/26/2014, 12/2012, 05/30/2012, Additional history exists Insurance [facility] CHO[facility] PLUS [facility] CHO[facility] PLUS [facility] CHOICE PLUS Care Teams Tub Mender Relationship Specialty Start Date End Date Nigel Hernandez MD PCP - General Internal Medicine 01/27/19
--- OUTSIDE RECORDS SUMMARY | 2025-06-01 19:00 | XMS_ITS | Clinical Summary ---
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
--- OUTSIDE RECORDS SUMMARY | 2025-06-01 19:00 | XMS_ITS | Clinical Summary ---
Author Organization [facility] Address [address] [place] [address] Care Team Providers Care Catalyst Operator Chief Name Role Phone Nigel Hernandez MD Primary Care Provider [phone] Source Comments [facility],non-owned Affiliates and Associated Physician Practices is amultiple site organization consisting of ambulatory clinics and hospital sitesin [place], [place], [place] and [place]. This disclosure is being madepursuant to the Care Everywhere program and may not contain all information available regarding this patient. Last updated 18.[facility] Allergies Active Allergy Reactions Criticality Noted Date [...] lb 0.6 oz) 09/26/2015 8:54 A M RESEARCH DEVELOPMENT MANAGER Height 178.9 cm (5' 10.43) 09/26/2015 8:[address] Body Mass Index 29.48 09/26/2015 8:54 AM RESEARCH DEVELOPMENT MANAGER Plan of Treatment Health Maintenance Due Date Last Done Comments HIV SCREENING 2014 HPV VACCINE (1 - Male 3-dose series) 2014 HEPATITIS C SCREENING 08/11/2017 DTAP/TDAP/TD VACCINES (1 - Tdap) 2018 HEPATITIS B VACCINE (1 of 3 - 19+ 3-dose series) 2018 COVID-19 VACCINE (1 - 2023-2 5 season) 2024 DEPRESSION SCREENING 11/22/2024 INFLUENZA VACCINE (#1) 2025 ZOSTER VACCINE (1 of 2) 2049 [...] to complete this topic Insurance Care Teams Catalyst Operator Chief Relationship Specialty Start Date End Date Nigel Hernandez MD [address] [place] [address] [address] [place] [address] PCP - General Internal Medicine 07/31/15
--- NOTE | 2025-06-01 19:01 | ED.CHESTPAIN ---
HPI - Chest Pain General Chief Complaint: Chest Pain <Elaina Blum PA-C - Last Filed: 06/01/25 23:44> Stated Complaint: chest tightness <Elaina Blum PA-C - Last Filed: 06/01/25 23:44> Time Seen by Provider: 06/01/25 19:01 <Elaina Blum PA-C - Last Filed: 06/01/25 23:44> Focused HPI: This is a 24 year old male that presents to the ER for chest pain. Reports he has been outside all day. Reports dizziness, nausea, chest pain. GENERAL: Well-appearing, well-nourished, and in no acute distress. HEAD: Normocephalic, atraumatic. CHEST: Clear to auscultation. ?No respiratory distress. HEART: Regular rate and rhythm.? NEURO: ?Alert and oriented x3. Patient screened in triage and initial orders placed.? ?Additional care and disposition to be based upon?diagnostic testing and treatment. <Elaina Blum PA-C - Last Filed: 06/01/25 23:44> Focused HPI: This is a 24 year old male that presents to the ER for chest pain. Reports he has been outside all day. Reports dizziness, nausea, chest pain. GENERAL: Well-appearing, well-nourished, and in no acute distress. HEAD: Normocephalic, atraumatic. CHEST: Clear to auscultation. ?No respiratory distress. HEART: Regular rate and rhythm.? NEURO: ?Alert and oriented x3. Patient screened in triage and initial orders placed.? ?Additional care and disposition to be based upon?diagnostic testing and treatment. Agree with triage assessment. Mother states that he has been having these symptoms for a while has followed up with a construction supervisor/carpenter, has had an echocardiogram and a Holter monitor which she wore for a month. He was cleared from a cardiovascular perspective. <Amelie Zendejas MD - Last Filed: 06/01/25 22:59> Related Data Home Medications: Home Medications ?Medication ?Instructions ?Recorded ?Confirmed ?Last Taken ?Type No Home Medications 03/24/20 07/29/21 Unknown History <Elaina Blum PA-C - Last Filed: 06/01/25 23:44> Allergies/Adverse Reactions: Allergies Allergy/AdvReac Type Severity Reaction Status Date / Time Penicillins Allergy Unknown Unknown Verified 04/11/25 23:28 AMOXICILLIN TRIHYDRATE Allergy Mild RASH Uncoded 04/11/25 23:28 <Elaina Blum PA-C - Last Filed: 06/01/25 23:44> Review of Systems Review of Systems: All systems are reviewed and are negative unless stated otherwise in the HPI. <Amelie Zendejas MD - Last Filed: 06/01/25 22:59> PMFSH Past Medical History Medical History: Medical History No significant past medical history <Elaina Blum PA-C - Last Filed: 06/01/25 23:44> Surgical History Surgical History: Surgical History Status post arthroscopic surgery of left knee <Elaina Blum PA-C - Last Filed: 06/01/25 23:44> Social History Social History: Social History Smokeless tobacco user: chewing tobacco Gender identity (if verbalized by the patient): Male <Elaina Blum PA-C - Last Filed: 06/01/25 23:44> Exam Narrative: General: Alert, awake, afebrile, in no acute distress. HEENT: PERRL, no rhinorrhea, no post nasal drip, oropharynx clear. Neck: Trachea midline, no JVD, no lymphadenopathy. Cardiovascular: Regular rate and rhythm, no murmurs, rubs or gallops, no peripheral edema. Respiratory: Clear to auscultation bilaterally, no tachypnea, no wheezing, no rhonchi, no rubs, no respiratory distress. Abdomen: Soft, nontender, nondistended, no rebound, no guarding, no peritoneal signs. Musculoskeletal: No joint swelling or deformity, normal muscle tone. Skin: No rashes or petechia, no signs of infection. Psychiatric: Alert and oriented, normal behavior and judgment for situation. Neurological: Alert and oriented to person, place, and time. Follows all commands. No focal deficits, speech is clear and fluent. <Amelie Zendejas MD - Last Filed: 06/01/25 22:59> Course Vital Signs Vital signs: Vital Signs Temperature 97.6 F 06/01/25 19:00 Pulse Rate 74 06/01/25 19:00 Respiratory Rate 16 06/01/25 19:00 Blood Pressure 141/77 H 06/01/25 19:00 Pulse Oximetry 100 06/01/25 19:00 Oxygen Delivery Room Air 06/01/25 19:00 Temperature 97.6 F 06/01/25 19:00 Pulse Rate 53 L 06/01/25 22:46 Respiratory Rate 19 06/01/25 22:46 Blood Pressure 108/71 06/01/25 22:46 Pulse Oximetry 100 06/01/25 22:46 Oxygen Delivery Room Air 06/01/25 21:39 <Elaina Blum PA-C - Last Filed: 06/01/25 23:44> Vital Signs Temperature 97.6 F 06/01/25 19:00 Pulse Rate 74 06/01/25 19:00 Respiratory Rate 16 06/01/25 19:00 Blood Pressure 141/77 H 06/01/25 19:00 Pulse Oximetry 100 06/01/25 19:00 Oxygen Delivery Room Air 06/01/25 19:00 Temperature 97.6 F 06/01/25 19:00 Pulse Rate 53 L 06/01/25 22:46 Respiratory Rate 19 06/01/25 22:46 Blood Pressure 108/71 06/01/25 22:46 Pulse Oximetry 100 06/01/25 22:46 Oxygen Delivery Room Air 06/01/25 21:39 <Amelie Zendejas MD - Last Filed: 06/01/25 22:59> MDM - Chest Pain MDM Narrative Medical decision making narrative: The patient was evaluated by myself in the emergency department. History is obtained from patient who is an independent historian and physical exam was performed. External medical records were reviewed at this time. IV was established and pertinent tests were ordered. EKG was obtained which revealed sinus rhythm rate 75 beats per minute. No ST changes, T wave inversions or evidence of acute ischemia. EKG was independently interpreted by me and is currently pending official cardiology read. Laboratory results obtained revealing no acute process. Troponin negative. Imaging studies obtained included CXR which was independently interpreted by me revealing no acute cardiopulmonary process, which is pending final radiology interpretation. Differential diagnosis considerations include acute coronary syndrome although unlikely given patient's low heart score of 0 and negative for cardiac workup, additional differentials include anxiety, acid reflux/GERD, acute stress reaction, dehydration, electrolyte derangements, acute viral syndrome. Patient and mother were informed the all of these differentials at bedside. Comorbidities impacting this visit include none. I have evaluated and discussed social determinants of health with the patient that could potentially impact subsequent diagnosis and treatment plans. On repeat assessment of the patient, reevaluation revealed that the patient is doing well and is in no acute distress. Patient symptoms have improved since he arrived to our emergency department. Repeat vital signs were all reviewed and noted to be stable. Differential diagnosis and treatment plan were discussed with the patient at bedside. Patient agrees with discussion and after shared medical decision making agrees with discharge. All questions were answered to the patient's satisfaction. Patient will follow up with his PCP in 3-5 days. Patient was provided with strict return precautions and instructed to return to the emergency department if any new or worsening symptoms develop. The patient was discharged in stable condition. <Amelie Zendejas MD - Last Filed: 06/01/25 22:59> Lab Data Result diagrams: 06/01/25 20:16 06/01/25 20:16 <Elaina Blum PA-C - Last Filed: 06/01/25 23:44> Labs: Lab Results 06/01/25 06/01/25 Range/Units 20:16 21:18 WBC 8.7 (4.5-10.0) K/mm3 RBC 5.30 (4.6-6.20) M/mm3 Hgb 15.6 (14.0-18.0) g/dL Hct 45.2 (42.0-52.0) % MCV 85.3 (80-100) fl MCH 29.4 (26-34) pg MCHC 34.5 (32-36) g/dl RDW 12.2 (11.5-14.5) % Plt Count 233 (150-375) k/mm3 MPV 8.7 (7.4-10.4) fl Immature Gran % (Auto) 0.3 (0-0.5) % Neut % (Auto) 64.5 (45.5-73.1) % Lymph % (Auto) 27.7 (18.3-44.2) % [place] % (Auto) 6.0 (2.6-8.5) % Eos % (Auto) 0.9 (0-4.4) % Baso % (Auto) 0.6 (0.2-1.2) % Lymph # (Auto) 2.40 (0.9-3.2) K/mm3 [place] # (Auto) 0.5 (0.1-0.6) K/mm3 Eos # (Auto) 0.1 (0-0.3) K/mm3 Baso # (Auto) 0.1 (0.0-0.1) K/mm3 Abs Immat Gran (auto) 0.03 (0.00-0.031) K/mm3 Absolute Neuts (auto) 5.6 (1.3-6.7) K/mm3 Absolute Nucleated RBC 0.000 (0.0-0.012) K/mm3 Nucleated RBC % 0.0 (0.0-0.2) % PT 15.1 H (11.1-14.7) Seconds INR 1.2 APTT 29.0 (22.3-36.8) Seconds Sodium 141 (137-145) mmol/L Potassium 4.0 (3.4-5.0) mmol/L Chloride 103 (98-107) mmol/L Carbon Dioxide 25 (22-30) mmol/L Anion Gap 13 H (4-12) mmol/L BUN 14 D (9-20) mg/dL Creatinine 0.94 (0.7-1.3) mg/dL Estim Creat Clear Calc 134 ml/min Estimated GFR > 60 (59 - ) Glucose 84 (65-110) mg/dL Calcium 9.7 (8.4-10.2) mg/dL Total Bilirubin 0.9 (0.2-1.3) mg/dL AST 29 (17-59) U/L ALT 30 (6-50) U/L Alkaline Phosphatase 63 (38-126) U/L Total Creatine Kinase 113 (55-170) U/L Troponin I < 0.012 (0.000-0.034) ng/mL Total Protein 8.5 H (6.3-8.2) g/dL Albumin 5.1 (3.5-5.1) g/dL Lipase 38 (23-300) U/L Urine Color Yellow (Yellow) Urine Appearance Clear (Clear) Urine pH 6.5 (5.0-9.0) Ur Specific [place] 1.024 (1.001-1.035) Urine Protein Negative (Negative) mg/dL Urine Glucose (UA) Negative (Negative) mg/dL Urine Ketones Trace H (Negative) mg/dL Ur Blood (Man) Negative (Negative) Urine Nitrate Negative (Negative) Urine Bilirubin Negative (Negative) Urine Urobilinogen 1.0 (<2.0) mg/dL Leukocyte Esterase Rfl Negative (Negative) TOMY/UL <Elaina Blum PA-C - Last Filed: 06/01/25 23:44> Lab Results 06/01/25 06/01/25 Range/Units 20:16 21:18 WBC 8.7 (4.5-10.0) K/mm3 RBC 5.30 (4.6-6.20) M/mm3 Hgb 15.6 (14.0-18.0) g/dL Hct 45.2 (42.0-52.0) % MCV 85.3 (80-100) fl MCH 29.4 (26-34) pg MCHC 34.5 (32-36) g/dl RDW 12.2 (11.5-14.5) % Plt Count 233 (150-375) k/mm3 MPV 8.7 (7.4-10.4) fl Immature Gran % (Auto) 0.3 (0-0.5) % Neut % (Auto) 64.5 (45.5-73.1) % Lymph % (Auto) 27.7 (18.3-44.2) % [place] % (Auto) 6.0 (2.6-8.5) % Eos % (Auto) 0.9 (0-4.4) % Baso % (Auto) 0.6 (0.2-1.2) % Lymph # (Auto) 2.40 (0.9-3.2) K/mm3 [place] # (Auto) 0.5 (0.1-0.6) K/mm3 Eos # (Auto) 0.1 (0-0.3) K/mm3 Baso # (Auto) 0.1 (0.0-0.1) K/mm3 Abs Immat Gran (auto) 0.03 (0.00-0.031) K/mm3 Absolute Neuts (auto) 5.6 (1.3-6.7) K/mm3 Absolute Nucleated RBC 0.000 (0.0-0.012) K/mm3 Nucleated RBC % 0.0 (0.0-0.2) % PT 15.1 H (11.1-14.7) Seconds INR 1.2 APTT 29.0 (22.3-36.8) Seconds Sodium 141 (137-145) mmol/L Potassium 4.0 (3.4-5.0) mmol/L Chloride 103 (98-107) mmol/L Carbon Dioxide 25 (22-30) mmol/L Anion Gap 13 H (4-12) mmol/L BUN 14 D (9-20) mg/dL Creatinine 0.94 (0.7-1.3) mg/dL Estim Creat Clear Calc 134 ml/min Estimated GFR > 60 (59 - ) Glucose 84 (65-110) mg/dL Calcium 9.7 (8.4-10.2) mg/dL Total Bilirubin 0.9 (0.2-1.3) mg/dL AST 29 (17-59) U/L ALT 30 (6-50) U/L Alkaline Phosphatase 63 (38-126) U/L Total Creatine Kinase 113 (55-170) U/L Troponin I < 0.012 (0.000-0.034) ng/mL Total Protein 8.5 H (6.3-8.2) g/dL Albumin 5.1 (3.5-5.1) g/dL Lipase 38 (23-300) U/L Urine Color Yellow (Yellow) Urine Appearance Clear (Clear) Urine pH 6.5 (5.0-9.0) Ur Specific [place] 1.024 (1.001-1.035) Urine Protein Negative (Negative) mg/dL Urine Glucose (UA) Negative (Negative) mg/dL Urine Ketones Trace H (Negative) mg/dL Ur Blood (Man) Negative (Negative) Urine Nitrate Negative (Negative) Urine Bilirubin Negative (Negative) Urine Urobilinogen 1.0 (<2.0) mg/dL Leukocyte Esterase Rfl Negative (Negative) TOMY/UL <Amelie Zendejas MD - Last Filed: 06/01/25 22:59> Discharge Plan Discharge Clinical Impression: Atypical chest pain <Elaina Blum PA-C - Last Filed: 06/01/25 23:44> Patient Disposition: Home <Elaina Blum PA-C - Last Filed: 06/01/25 23:44> Condition: Improved <Elaina Blum PA-C - Last Filed: 06/01/25 23:44> Instructions: Antibiotic Form, Chest Pain (ED) <Elaina Blum PA-C - Last Filed: 06/01/25 23:44> Additional Instructions: Please follow-up with your family doctor within the next 3-5 days. Return to emergency department if any new or worsening symptoms develop. <Elaina Blum PA-C - Last Filed: 06/01/25 23:44> Patient Language: Uzbek <Elaina Blum PA-C - Last Filed: 06/01/25 23:44> Prescriptions: No Action No Home Medications <Elaina Blum PA-C - Last Filed: 06/01/25 23:44> Follow-up/Referrals: Hernandez,Nigel Garzon MD [Primary Care Provider] - 3 Days <Elaina Blum PA-C - Last Filed: 06/01/25 23:44> Time of Disposition: 22:59 <Elaina Blum PA-C - Last Filed: 06/01/25 23:44> 22:59 <Amelie Zendejas MD - Last Filed: 06/01/25 22:59>
--- NOTE | 2025-06-01 19:02 | ECG_ITS ---
Test Date: 2025-06-01 19:07:33 Measurements Intervals [place] Rate: 75 P: 51 [place]: 172 QRS: 61 QRSD: 93 T: 56 QT: 373 QTc: 419 Interpretive Statements SINUS ARRHYTHMIA POSSIBLE RIGHT VENTRICULAR CONDUCTION DELAY Electronically Signed On 06-02-2025 08:10:42 CDT by Darrly Rodrigues D.O
--- OUTSIDE RECORDS SUMMARY | 2025-06-01 19:20 | XMS_ITS | Clinical Summary ---
Author Organization [facility] Address [address] Messer: Epic Prelude ADT TAMMIE MCADAMS [id number] Care Team Providers Care Concrete Bucket Loader Name Role Phone Unavailable Primary Care Provider Unavailabl e Medications azithromycin (Zithromax Z-Perry) 250 mg tablet TAKE 2 TABLETS (500 MG) BY ORAL ROUTE ONCE DAILY FOR 1 DAY THEN 1 TABLET (250 MG) BY ORAL ROUTE ONCE DAILY FOR 4 DAYS 6 Tablet 12/28/2022 12:56 PM AGENCY SERVICE COORDINATOR 12/28/2022 Active benzonatate (TESSALON) 200 mg capsule Take 1 Capsule (200 mg) by mouth 3 times daily. 21 Capsule 12/02/2023 2:08 PM AGENCY SERVICE COORDINATOR 12/02/2023 Active methylPREDNISol one (MEDROL DOSPACK) 4 [...] times daily. 21 Capsule 01/23/2025 5:06 PM AGENCY SERVICE COORDINATOR 01/23/2025 Active azithromycin (Zithromax Z-Perry) 250 mg tablet TAKE 2 TABLETS BY MOUTH A SINGLE DOSE ON DAY 1, THEN TAKE 1 TABLET ONCE DAILY ON DAYS 2 THRU 5. 6 Tablet 01/23/2025 5:06 PM AGENCY SERVICE COORDINATOR 01/23/2025 Active Social History Tobacco Use Types [...]
--- OUTSIDE RECORDS SUMMARY | 2025-06-01 19:20 | XMS_ITS | Clinical Summary ---
Author Organization [facility] Address [address] [place] [id number] Care Team Providers Care Mission Manager Name Role Phone Unavailable Primary Care Provider Unavailabl e Social History Tobacco Use Types Packs/Day Years Used Date Smoking Tobacco: Never Assessed Sex and Gender Information Value Date Recorded Sex Assigned at Not on file Legal Sex Male 2:14 PM LABOR RELATIONS ANALYST Gender Identity Not on file Sexual Orientation [...]
--- OUTSIDE RECORDS SUMMARY | 2025-06-01 19:20 | XMS_ITS | Clinical Summary ---
Author Organization [facility] Address [address] [place] [address] Care Team Providers Care Municipal Firefighter Name Role Phone Nigel Hernandez MD Primary Care Provider [phone] Source Comments [facility],non-owned Affiliates and Associated Physician Practices is amultiple site organization consisting of ambulatory clinics and hospital sitesin [place], [place], [place] and [place]. This disclosure is being madepursuant to the Care Everywhere program and may not contain all information available regarding this patient. Last updated 18.[facility] Allergies Active Allergy Reactions Criticality Noted Date [...] lb 0.6 oz) 09/26/2015 8:54 A M SUSTAINABLE DESIGN COORDINATOR Height 178.9 cm (5' 10.43) 09/26/2015 8:[address] Body Mass Index 29.48 09/26/2015 8:54 AM SUSTAINABLE DESIGN COORDINATOR Plan of Treatment Health Maintenance Due Date [...] to complete this topic Insurance Care Teams Municipal Firefighter Relationship Specialty Start Date End Date Nigel Hernandez MD [address] [place] [address] [address] [place] [address] PCP - General Internal Medicine 07/31/15
--- OUTSIDE RECORDS SUMMARY | 2025-06-01 19:20 | XMS_ITS | Clinical Summary ---
Author Organization [facility] Address [address] [place] [address] Care Team Providers Care Marble Setter Name Role Phone Nigel Hernandez MD Primary Care Provider Allergies Active Allergy Reactions Criticality Noted Date Comments Amoxicillin Rash Medium 08/01/2015 Penicillins Rash Medium Medications No known medications Active Problems Problem Noted Date Diagnosed Date Current tear of lateral cartilage or meniscus of knee 01/30/2019 Overview (01/30/2019): Added automatically from request for surgery [id number] Knee pain 10/06/2013 Surgical History Surgery Date [...] on file Legal Sex Male 9:43 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
--- OUTSIDE RECORDS SUMMARY | 2025-06-01 19:20 | XMS_ITS | Referral Summary ---
Author Organization [facility] Address [address] [place] [address] Care Team Providers Care Yarn Winder Name Role Phone Nigel Hernandez MD Primary Care Provider Allergies Active Allergy Reactions Criticality Noted Date Comments Amoxicillin Rash Medium 08/01/2015 Penicillins Rash Medium Medications No known medications Active Problems Problem Noted Date Diagnosed Date Current tear of lateral cartilage or meniscus of knee 01/30/2019 Overview (01/30/2019): Added automatically from request for surgery [id number] Knee pain 10/06/2013 Social History Tobacco Use Types Packs/Day Years Used Date Smoking Tobacco: Never Smokeless Tobacco: Current Chew Alcohol Use Standard Drinks/Week Comments Not Currently 0 (1 standard drink = 0.6 oz pur e alcohol) Sex and Gender Information Value Date Recorded Sex Assigned at Not on file 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
[2025-06-01 20:26] LABS: Hematocrit 45.2 % (42.0-52.0); Hemoglobin 15.6 g/dL (14.0-18.0); Immature Granulocyte Percent A 0.3 % (0-0.5); Lymphocytes Absolute Auto 2.40 K/mm3 (0.9-3.2); Mean Corpuscular HGB Conc 34.5 g/dl (32-36); Mean Corpuscular Hemoglobin 29.4 pg (26-34); Mean Corpuscular Volume 85.3 fl (80-100); Nucleated Red Blood Cells Absolute Auto 0.000 K/mm3 (0.0-0.012); Nucleated Red Blood Cells Perc 0.0 % (0.0-0.2); Platelet Count Result 233 k/mm3 (150-375); Red Blood Count 5.30 M/mm3 (4.6-6.20); White Blood Count 8.7 K/mm3 (4.5-10.0)
[2025-06-01 20:39] LABS: Alanine Aminotransferase 30 U/L (6-50); Albumin Level 5.1 g/dL (3.5-5.1); Alkaline Phosphatase 63 U/L (38-126); Anion Gap 13 mmol/L (4-12); Aspartate Amino Transferase 29 U/L (17-59); Bilirubin,Total 0.9 mg/dL (0.2-1.3); Blood Urea Nitrogen 14 mg/dL (9-20); Calcium 9.7 mg/dL (8.4-10.2); Carbon Dioxide 25 mmol/L (22-30); Chloride 103 mmol/L (98-107); Creatine Kinase 113 U/L (55-170); Estimated CRCL calculation 134 ml/min; Estimated Glomerular Filt Rate > 60; Glucose 84 mg/dL (65-110); Lipase 38 U/L (23-300); Potassium 4.0 mmol/L (3.4-5.0); Sodium 141 mmol/L (137-145); Total Protein 8.5 g/dL (6.3-8.2)
[2025-06-01 20:50] LABS: Troponin I < 0.012 ng/mL (0.000-0.034)
[2025-06-01 21:07] LABS: Partial Thromboplastin Time 29.0 Seconds (22.3-36.8)
[2025-06-01] MEDS: ASPIRIN 81 MG CHEWABLE TABLET 324 MG PO (21:08)
[2025-06-01 21:24] LABS: INR 1.2; Prothrombin Time 15.1 Seconds (11.1-14.7)
[2025-06-01 21:27] LABS: Add Urine Microscopic? NO; Appearance Urine Clear (Clear); Glucose Urine UA Negative (Negative); Leukocyte Esterase Ur Negative LEU/UL (Negative); Nitrate Urine Negative (Negative); Specific Grav Ur 1.024 (1.001-1.035)
== END 2025-06-01 23:08 | disposition home or self-care (01) ==
PROVIDERS: Physician Assistant; Emergency Provider Emergency Medicine; PCP Internal Medicine
DX: R07.89 Other chest pain (principal); F17.220 Nicotine dependence, chewing tobacco, uncomplicated; R94.31 Abnormal electrocardiogram [ECG] [EKG]
CPT/HCPCS: 36415; 71046; 80053; 81003; 82550; 83690; 84484; 85025; 85610; 85730; 93005; 99284; A9270